=== PATIENT | female | born 1960 | race Caucasian/White ===

== ENCOUNTER 2017-05-15 11:31 | Inpatient (IN) | payer BC ==
--- NOTE | 2017-05-15 13:01 | ED PDOC ---
Arrival/HPI - General Chief Complaint: High Blood Pressure Time Seen by Provider: 05/15/17 12:46 Historian: Patient - History of Present Illness Narrative History of Present Illness (Text): 05/15/17 13:49 Patient is a 56 yo female presents to the Emergency Department with history of headaches intermittently and "not feeling well" for the past two days but also admits "possibly longer than that". Patient notes that she was noted to have elevated blood pressure, she denies prior history of this. Patient states headaches generalized, not sudden onset. No associated photopobia or neck pain. Also states that over past two days she has been short of breath with exertion, when she walks up steps she also experiences chest discomfort. At rest, denies chest pain. States headache currently persistent but somewhat improved than earlier. She reports that blood pressure was "180" prior to arrival. She reports that while getting triaged she "almost passed out", reports dizziness and lightheadedness while getting registered. Time/Duration: Prior to Arrival, < week Symptom Onset: Gradual Past Medical History - Neurological Hx Neurological Disorder: Yes Other/Comment: Fibromyalgia, chronic fatigue - Psychiatric Hx Substance Use: No - Surgical History Hx Hysterectomy: Yes Other/Comment: Rt. Knee, Rt. Shoulder Family/Social History Family/Social History: CAD/ME Smoking Status: Never Smoked Hx Alcohol Use: No Hx Substance Use: No Allergies/Home Meds Allergies/Adverse Reactions: Allergies No Known Allergies Allergy (Verified 05/15/17 20:53) Home Medications: Home Meds Medication Instructions Recorded Confirmed Unobtainable 05/15/17 05/15/17 Review of Systems - Review of Systems Constitutional: Fatigue. absent: Fevers Eyes: Other (intermittent blurred vision). absent: Vision Changes, Eye Pain ENT: absent: Hearing Changes, Sore Throat, Rhinorrhea Respiratory: absent: SOB Cardiovascular: Chest Pain, SILVA. absent: Edema, Calf Pain Gastrointestinal: absent: Abdominal Pain, Nausea, Vomiting Genitourinary Female: absent: Dysuria Musculoskeletal: Back Pain Skin: absent: Rash Neurological: Headache, Dizziness. absent: Focal Weakness Endocrine: absent: Polyuria Hemo/Lymphatic: absent: Easy Bleeding Psychiatric: absent: Depression Physical Exam - Physical Exam Narrative Physical Exam (Text): Head: Atraumatic. Normocephalic. Eyes: PERRL. EOMI. Conjunctivae are not pale. No pain with eye movements. Visual acuity and anderson grossly intact. ENT: Mucous membranes are moist and intact. Oropharynx is clear and symmetric. Neck: Supple. Full ROM. No JVD. No lymphadenopathy. Cardiovascular: Regular rate. Regular rhythm. No murmurs, rubs, or gallops. Distal pulses are 2+ and symmetric. Pulmonary/Chest: No evidence of respiratory distress. Clear to auscultation bilaterally. No wheezing, rales or rhonchi. Abdominal: Soft and non-distended. Mild epigastric pain, negative Rojas's sign. No rebound, guarding, or rigidity. No organomegaly. Good bowel sounds. Back: No CVA tenderness. Extremities: No edema. No cyanosis. No clubbing. Full range of motion in all extremities. No calf tenderness. Skin: Skin is warm and dry. No petechiae. No purpura. Neurological: Alert, awake, and oriented. Motor and sensory exam intact with no slurred speech or facial droop. Normal gait. No meningeal signs. Psychiatric: Good eye contact. Normal interaction, affect, and behavior. 05/16/17 11:13 Vital Signs Reviewed: Yes Vital Signs Temp Pulse Pulse Pulse Resp BP Pulse Ox 05/15/17 20:52 83 82 82 19 162/95 H 05/15/17 20:15 97.6 F 87 20 119/54 L 98 05/15/17 18:10 89 16 155/101 H 98 05/15/17 18:07 86 17 170/109 H 98 05/15/17 14:19 97.6 F 78 18 149/98 H 99 05/15/17 13:53 82 18 146/98 H 99 05/15/17 12:47 99 H 18 149/86 100 05/15/17 11:33 97.7 F 105 H 18 172/117 H 100 Temperature: Afebrile Blood Pressure: Hypertensive Appearance: Positive for: Uncomfortable Pain Distress: Moderate Mental Status: Positive for: Alert and Oriented X 3 Finger Stick Blood Glucose: 99 Medical Decision Making ED Course and Treatment: 05/15/17 16:35 Patient is a 56 yo female, DENIES prior history of hypertension, presents with "not feeling well", and patient has had chest pain and dyspnea with exertion. She has had prior cardiac cath which reportedly was unremarkable. She reports significant past family cardiac history. Patient is noted to be hypertensive in ED, reportedly found to be more elevated prior to arrival. She reports that her "blood pressure is usually low". Her current neuro exam is intact. She reports near syncopal event prior to being placed on stretcher. Currently no hypotension or tachycardia, no fever. She reports feeling dizzy when she lays down. No calf pain or pleuritic pain. There is mild epigastric pain noted on re- exam, LFTs mildly elevated when compared to prior. Cannot exclude GI component of symptoms, although given HTN and chest pain/dyspnea with exertion, possible multifactorial source of her symptoms, will admit for cardiac monitoring and serial neuro exams. Suspect headaches may be related to hypertension, as headache improved with BP improved, although given trending of persistently elevated BP by her report over past week will consider underlying neuro etiology as well if symptoms persistent. Case d/w hospitalist, covering for patient's PMD. - Lab Interpretations Lab Results: 05/15/17 13:23 05/15/17 13:23 Lab Results 05/15/17 13:23: Sodium 143, Potassium 4.1, Chloride 101, Carbon Dioxide 31, Anion Gap 15, BUN 13, Creatinine 0.7, Est GFR ( Amer) > 60, Est GFR (Non- Af Amer) > 60, Random Glucose 107, Calcium 10.1, Total Bilirubin 0.4, AST 60 H, ALT 71 H, Alkaline Phosphatase 104, Lactate Dehydrogenase 591, Total Creatine Kinase 263 H, CK-MB (CK-2) 0.8, CK-MB (CK-2) % Cancelled, Troponin I < 0.01, Total Protein 7.7, Albumin 4.6, Globulin 3.2, Albumin/Globulin Ratio 1.4 05/15/17 13:23: PT 11.4, INR 0.99, APTT 30.8 05/15/17 13:23: WBC 6.5, RBC 4.36, Hgb 14.3, Hct 43.1, MCV 98.9, MCH 32.8, MCHC 33.2, RDW 13.8, Plt Count 297, MPV 9.0, Gran % 61.0, Lymph % (Auto) 29.3, Luna % (Auto) 7.1 H, Eos % (Auto) 2.0, Baso % (Auto) 0.6, Gran # 3.94, Lymph # 1.9, Luna # 0.5, Eos # 0.1, Baso # 0.04 05/15/17 13:21: POC Glucose (mg/dL) 102 - RAD Interpretation Radiology Orders: 05/15/17 13:01 HEAD W/O CONTRAST [CT] Stat CHEST PORTABLE [RAD] Stat 05/15/17 14:54 ABDOMEN COMPLETE [US] Stat Candy Cutter Hand: Radiologist - EKG Interpretation EKG Interpretation (Text): 05/15/17 16:41 EKG normal sinus rhythm rate of 84, moderate voltage criteria for LVH Interpreted by ED Physician: Yes Type: 12 lead EKG - Medication Orders Current Medication Orders: Aspirin (Aspirin Chewable) 81 mg PO DAILY GABRIELLE Atorvastatin Calcium (Lipitor) 40 mg PO DIN [facility] Heparin Sodium (Porcine) (Heparin) 5,000 units SC Q12 GABRIELLE PRN Reason: Protocol Sodium Chloride (Sodium Chloride 0.9%) 1,000 mls @ 100 mls/hr IV .Q10H [facility] Loratadine (Claritin) 10 mg PO DAILY [facility] Last Admin: 05/15/17 18:12 Dose: 10 mg Magnesium Oxide (Mag-Ox) 400 mg PO BID [facility] Pantoprazole Sodium (Protonix Inj) 40 mg IVP Q12 [facility] Last Admin: 05/15/17 22:51 Dose: 40 mg IVP Administration Document 05/15/17 22:51 ST (Rec: 05/15/17 22:51 [place] [id number]) Charges for Administration # of IVP Administrations 1 Sodium Chloride ([place] Nasal Sultana) 2 ml NS BID PRN PRN Reason: Nasal congestion Discontinued Medications Acetaminophen/Butalbital/Caffeine (Fioricet) 1 tab PO ONCE STA Stop: 05/15/17 17:04 Last Admin: 05/15/17 18:12 Dose: 1 tab [facility] Pain Assessment Document 05/15/17 18:12 OCS (Rec: 05/15/17 18:12 OCS [id number]) Pain Reassessment Is this a pain reassessment? Yes Sleep Is patient sleeping during reassessment? No Presence of Pain Presence of Pain Yes Re-Assess: [facility] Pain Assessment Document 05/15/17 19:12 ST (Rec: 05/15/17 22:56 [place] [id number]) Pain Reassessment Is this a pain reassessment? Yes Sleep Is patient sleeping during reassessment? No Description Description Pressure Intensity of Pain at present 2 Acetaminophen/Butalbital/Caffeine (Fioricet) 1 tab PO Q6H PRN PRN Reason: Pain, moderate (4-7) Last Admin: 05/16/17 06:14 Dose: 1 tab [facility] Pain Assessment Document 05/16/17 06:14 ST (Rec: 05/16/17 06:15 ST [id number]) Pain Reassessment Is this a pain reassessment? No Sleep Is patient sleeping during reassessment? No Presence of Pain Presence of Pain Yes Pain Scale Used Pain Scale Used Numeric Location Left, Right or Bilateral Left Pain Location Body Project Management Advisor Description Description Constant Intensity of Pain at present 9 Re-Assess: [facility]NER Pain Assessment Document 05/16/17 07:14 ST (Rec: 05/16/17 08:23 ST [id number]) Pain Reassessment Is this a pain reassessment? Yes Sleep Is patient sleeping during reassessment? No Presence of Pain Presence of Pain Yes Pain Scale Used Pain Scale Used Numeric Location Pain Location Body Project Management Advisor Description Description Constant Intensity of Pain at present 8 Dexamethasone (Decadron Inj) 10 mg IVP ONCE ONE Stop: 05/16/17 08:07 Last Admin: 05/16/17 09:07 Dose: 10 mg IVP Administration Document 05/16/17 09:07 CD (Rec: 05/16/17 09:07 CD [id number]) Charges for Administration # of IVP Administrations 1 Diphenhydramine HCl (Benadryl) 25 mg PO ONCE STA Stop: 05/16/17 09:18 Last Admin: 05/16/17 09:21 Dose: 25 mg Famotidine (Pepcid) 20 mg IVP STAT STA Stop: 05/15/17 15:05 Last Admin: 05/15/17 18:12 Dose: 20 mg IVP Administration Document 05/15/17 18:12 OCS (Rec: 05/15/17 18:12 OCS [id number]) Charges for Administration # of IVP Administrations 1 Valproate Sodium 500 mg/ (Sodium Chloride) 105 mls @ 100 mls/hr IVPB ONCE ONE Stop: 05/16/17 08:43 Potassium Chloride (K-Dur 20 Meq Er Tab) 20 meq PO ONCE ONE Stop: 01/11/18 09:24 Disposition/Present on Arrival - Present on Arrival Any Indicators Present on Arrival: No History of DVT/PE: No History of Uncontrolled Diabetes: No Urinary Catheter: No History of Decub. Ulcer: No History Surgical Site Infection Following: None - Disposition Have Diagnosis and Disposition been Completed?: Yes Diagnosis: Hypertension, Dizziness, Headache, Chest pain, Near syncope Disposition: HOSPITALIZED Disposition Time: 14:00 Patient Plan: Admission, Telemetry Patient Problems: Current Active Problems Problem Status Onset Chest pain Acute Dizziness Acute Headache Acute Hypertension Acute Condition: FAIR
[2017-05-15 13:40] LABS: BASO # 0.04 K/mm3 (0.0-2.0); BASO % 0.6 % (0.0-3.0); EOS # 0.1 (0.0-0.7); GRAN # 3.94 (1.4-6.5); HEMOGLOBIN 14.3 g/dL (12.0-16.0); LYMPH # 1.9 (1.2-3.4); LYMPH % 29.3 % (22.0-35.0); MEAN CELL VOLUME 98.9 fl (80.0-105.0); MEAN CORPUSCULAR HEMOGLOBIN 32.8 pg (25.0-35.0); MEAN CORPUSCULAR HGB CONC 33.2 g/dl (31.0-37.0); MONO # 0.5 (0.1-0.6); MONO % 7.1 % (1.0-6.0); RBC 4.36 10^6/uL (3.5-6.1); RED CELL DISTRIBUTION WIDTH 13.8 % (11.5-14.5); WHITE BLOOD COUNT 6.5 10^3/ul (4.5-11.0)
[2017-05-15 13:43] LABS: ALB/GLOB RATIO 1.4 (1.1-1.8); ALBUMIN 4.6 g/dL (3.0-4.8); ALT/SGPT 71 U/L (7-56); AST/SGOT 60 U/L (14-36); BLOOD UREA NITROGEN 13 mg/dL (7-21); CALCIUM 10.1 mg/dL (8.4-10.5); GFR AFRICAN-AMERICAN > 60; GFR NON-AFRICAN AMERICAN > 60
[2017-05-15 13:50] LABS: INR 0.99 (0.93-1.08); PARTIAL THROMBOPLASTIN TIME 30.8 Seconds (25.1-36.5); PROTHROMBIN TIME 11.4 SECONDS (9.4-12.5)
[2017-05-15 13:55] LABS: TROPONIN I < 0.01 ng/mL
[2017-05-15 14:01] LABS: CK-MB 0.8 ng/mL (0.0-3.6)
--- NOTE | 2017-05-15 14:22 | CT ---
PROCEDURE: CT HEAD WITHOUT CONTRAST. HISTORY: Headache, hypertension COMPARISON: None available. TECHNIQUE: Axial computed tomography images were obtained through the head/brain without intravenous contrast. Coronal and sagittal reconstructed images. Radiation dose: Total exam DLP = 850.76 mGy-cm. This CT exam was performed using one or more of the following dose reduction techniques: Automated exposure control, adjustment of the mA and/or kV according to patient size, and/or use of iterative reconstruction technique. FINDINGS: HEMORRHAGE: No intracranial hemorrhage. BRAIN: No mass effect or edema. No atrophy or chronic microvascular ischemic changes. VENTRICLES: Unremarkable. No hydrocephalus. CALVARIUM: Unremarkable. PARANASAL SINUSES: Unremarkable as visualized. No significant inflammatory changes. MASTOID AIR CELLS: Unremarkable as visualized. No inflammatory changes. OTHER FINDINGS: None. IMPRESSION: No acute intracranial abnormalities. No significant findings to account for the clinical presentation.
--- NOTE | 2017-05-15 14:43 | RAD ---
HISTORY: Syncope COMPARISON: 12/16/2013. FINDINGS: LUNGS: No active pulmonary disease. PLEURA: No significant pleural effusion identified, no pneumothorax apparent. CARDIOVASCULAR: No radiographic findings to suggest acute or significant cardiovascular disease. OSSEOUS STRUCTURES: No significant abnormalities. VISUALIZED UPPER ABDOMEN: Normal. OTHER FINDINGS: None. IMPRESSION: No active disease. No significant interval change compared to the prior examination(s).
--- NOTE | 2017-05-15 15:55 | CP.PCM.HP ---
<Yang Hughes - Last Filed: 05/16/17 05:11> History of Present Illness - History of Present Illness History of Present Illness: Chief Complaint: Headaches, generalized weakness HPI: Patient is a 56 year old female with past medical history of chronic migraines, hypotension presenting to [facility] emergency department with complaints of generalized weakness, headaches, shortness of breath, headaches, and epigastric pain. Patient states that the headache started about a month ago and that they are significantly different from the migraine she experiences. Patient states when she has migraines they are associated with diarrhea vomiting, photophobia and sweating.Patient states these headaches are different because they start from the left side of her neck and wrap her forehead with a focal point especially above the left eyebrow patient states headaches are also associated with her blurry vision and are not associated with nausea, diarrhea and photophobia. Pain is rated a seven out of ten, exacerbated with laying down and relieved by sitting up.Patient also endorses one month of shortness of breath with minimal exertion such as walking up the stairs to her house; this has never happened in the past. Patient's blood pressure is the main reason she came to the emergency department. Patient states her blood pressure has been noticeably increased stating that in the past week her readings for systolic blood pressure has been in the 160 to 180s; this is significant per patient due to the fact that she normally suffers from hypotension. While being admitted to the ED patient experienced a syncopal episode. Patient did not experience any trauma to this head at this time; code star was called. Patient denies fevers, chills, cough. PMD: formerly Dr. Almazan Past surgical history: Cholecystectomy, hysterectomy s/p Stage IV endometriosis , Fusion L4-L5 , endoscopy by Dr. Milian Family History: Mother- Breast cancer, Father- Myocardial infarction Past Medical history: chronic fatigue syndrome, chronic migraines, hypotension Social History: denies smoking, admits to social alcohol consumption, denies illicit drug use Medications: For migraines: Relpax 40 mg as needed, Allergies: esloratidine 5 mg daily, CFS/ME: valacyclovir 2 mg daily, memantine 5 mg daily, nalyrexone 1 mg daily, modafenil 100 mg daily, glutathione 50 mg weekly, Pain and fibromyalgia: cyclobenzaprine 5 mg nightly, celecoxib 200 mg twice a day, Vitamins and supplements: essential blend probiotic, magnesium, multivitamin, vitamin D3, Co-Q, phosphatidyl serine, inosine, tumeric curcumin, melatonin Labs on admission: wbc 6.5, hemoglobin 14.3, hematocrit 43.1, platelets 297, sodium 143, potassium 4.1, chloride 101, bicarbonate 31, BUN 13, creatinine 0.7 , AST 60, ALT 71, creatine kinase 263, troponins negative x2 Chest x-ray: no active disease CT head: no intracranial hemorrhage MRI brain without contrast: scattered foci of high FLAIR signal intensity within the cerebral matter. No mass effect or reestricted diffusion associated with these foci; suggestive of chronic small vessel ischemic disease, demyelination within differential. Small atrophy of frontal sulci. Calcification of posterior right frontal lobe; hemosiderin within differential, mild ventriculomegaly, no cerebral edema Abdominal ultrasound: fatty infiltration of liver, hepatic cysts; largest in right lobe 2.3 x 3.1. Present on Admission - Present on Admission Any Indicators Present on Admission: No Review of Systems - Review of Systems Systems not reviewed;Unavailable: Acuity of Condition - Constitutional Constitutional: Headache - EENT Eyes: Blurred Vision. absent: Tunnel Vision - Cardiovascular Cardiovascular: Dyspnea on Exertion, Syncope - Respiratory Respiratory: Dyspnea. absent: Wheezing - Gastrointestinal Gastrointestinal: Abdominal Pain. absent: Diarrhea - Genitourinary Genitourinary: absent: Dysuria, Flank Pain - Musculoskeletal Musculoskeletal: Back Pain - Neurological Neurological: Dizziness, Syncope, Weakness - Endocrine Endocrine: Fatigue Past Patient History - Past Social History Smoking Status: Never Smoked - NEUROLOGICAL Hx Neurological Disorder: Yes Other/Comment: Fibromyalgia, chronic fatigue - PSYCHIATRIC Hx Substance Use: No - SURGICAL HISTORY Hx Hysterectomy: Yes Other/Comment: Rt. Knee, Rt. Shoulder Meds Allergies/Adverse Reactions: Allergies Allergy/AdvReac Type Severity Reaction Status Date / Time No Known Allergies Allergy Verified 05/15/17 20:53 Physical Exam - Head Exam Head Exam: ATRAUMATIC, NORMAL INSPECTION, NORMOCEPHALIC - Eye Exam Eye Exam: EOMI, Normal appearance - ENT Exam ENT Exam: Mucous Membranes Moist, Normal Exam - Neck Exam Neck exam: Positive for: Normal Inspection - Respiratory Exam Respiratory Exam: Clear to Auscultation Bilateral, NORMAL BREATHING PATTERN - Cardiovascular Exam Cardiovascular Exam: REGULAR RHYTHM, +S1, +S2 - GI/Abdominal Exam GI & Abdominal Exam: Normal Bowel Sounds, Soft, Tenderness (right upper quadrant and right lower quadrant) - Extremities Exam Extremities exam: Positive for: normal inspection, pedal edema (bilateral) - Back Exam Back exam: NORMAL INSPECTION - Neurological Exam Neurological exam: Alert, CN II-XII Intact, Oriented x3 - Psychiatric Exam Psychiatric exam: Normal Affect, Normal Mood - Skin Skin Exam: Intact, Normal Color, Warm Results - Vital Signs Recent Vital Signs: Last Vital Signs Temp 97.6 F 05/15/17 14:19 Pulse 78 05/15/17 14:19 Resp 18 05/15/17 14:19 BP 149/98 H 05/15/17 14:19 Pulse Ox 99 05/15/17 14:19 - Labs Result Diagrams: 05/15/17 13:23 05/15/17 13:23 Labs: Laboratory Results - last 24 hr 05/15/17 05/15/17 05/15/17 13:23 13:23 13:23 WBC 6.5 RBC 4.36 Hgb 14.3 Hct 43.1 MCV 98.9 MCH 32.8 MCHC 33.2 RDW 13.8 Plt Count 297 MPV 9.0 Gran % 61.0 Lymph % (Auto) 29.3 Alpine % (Auto) 7.1 H Eos % (Auto) 2.0 Baso % (Auto) 0.6 Gran # 3.94 Lymph # 1.9 Alpine # 0.5 Eos # 0.1 Baso # 0.04 PT 11.4 INR 0.99 APTT 30.8 Sodium 143 Potassium 4.1 Chloride 101 Carbon Dioxide 31 Anion Gap 15 BUN 13 Creatinine 0.7 Est GFR ( Amer) > 60 Est GFR (Non-Af Amer) > 60 Random Glucose 107 Calcium 10.1 Total Bilirubin 0.4 AST 60 H ALT 71 H Alkaline Phosphatase 104 Lactate Dehydrogenase 591 Total Creatine Kinase 263 H CK-MB (CK-2) 0.8 CK-MB (CK-2) % Cancelled Troponin I < 0.01 Total Protein 7.7 Albumin 4.6 Globulin 3.2 Albumin/Globulin Ratio 1.4 Assessment & Plan - Assessment and Plan (Free Text) Assessment: Patient is a 56 year old female with past medical history of chronic migraines, hypotension presenting to [facility] emergency department with complaints of generalized weakness, headaches, shortness of breath, headaches, and epigastric pain. Plan: Syncope r/o ACS versus migraine versus vasovagal versus orthostasis - Troponin negative x 2 - EKG; normal sinus rhythm - carotid doppler - echocardiogram - orthostatics - CBC, CMP, TSH, fasting lipid panel, HgA1C - Cardiology consult; recommendations appreciated - Neurology consult; recommendations appreciated - neuro checks Migraines - Fiorocet; continue to monitor - Regular diet; patient hasn't eaten. Mild stressed with seemster starting again Hypertension - Continue to monitor; normalized after fiorocet was administered and eating Deep vein thrombosis/Gastrointestinal prophylaxis SCDs and heparin drip/Protonix <Qamar Aldana - Last Filed: 05/17/17 15:47> Results - Vital Signs Recent Vital Signs: Last Vital Signs Temp 98.8 F 05/16/17 19:06 Pulse 105 H 05/16/17 19:06 Resp 20 05/16/17 19:06 BP 159/101 H 05/16/17 19:06 Pulse Ox 98 05/16/17 06:00 - Labs Result Diagrams: 05/17/17 06:30 05/17/17 06:30 Labs: Laboratory Results - last 24 hr 05/17/17 05/17/17 06:30 06:30 WBC 12.1 H D RBC 4.04 Hgb 13.1 Hct 39.3 MCV 97.3 MCH 32.4 MCHC 33.3 RDW 14.0 Plt Count 312 MPV 9.0 Gran % 78.7 H Lymph % (Auto) 15.6 L Alpine % (Auto) 5.6 Eos % (Auto) 0.0 L Baso % (Auto) 0.1 Gran # 9.48 H Lymph # 1.9 Alpine # 0.7 H Eos # 0.0 Baso # 0.01 Sodium 140 Potassium 3.9 Chloride 107 Carbon Dioxide 22 Anion Gap 15 BUN 13 Creatinine 0.6 L Est GFR ( Amer) > 60 Est GFR (Non-Af Amer) > 60 Random Glucose 140 H Calcium 9.4 Total Bilirubin 0.3 AST 39 H D ALT 55 Alkaline Phosphatase 101 Total Protein 7.0 Albumin 4.0 Globulin 3.0 Albumin/Globulin Ratio 1.3 Attending/Attestation - Attestation I have personally seen and examined this patient.: Yes I have fully participated in the care of the patient.: Yes I have reviewed all pertinent clinical information: Yes Notes (Text): 05/17/17 15:22 Attending note; Patient seen and examined with resident in ER. Patient is a 56 year old female with past medical history of chronic fatigue syndrome , history of epidural injections , occipital nerve block, chronic migraines who presented with complaint of headache, high blood pressure and pre syncopal episode. CT and MRI brain with significant ischemia. Echocardiogram normal. Carotid Doppler normal. Neurology and cardiology evaluation appreciated. Hypertension; not on blood pressure medication at home. Monitor blood pressure closely. Start medication as needed. continue flexaril and topamax. Mild transaminitis noted; abdominal ultrasound showed fatty liver. PT evaluation requested. Possible discharge home tomorrow if PT clears the patient. 05/17/17 15:46
--- NOTE | 2017-05-15 16:52 | US ---
HISTORY: upper abdominal pain COMPARISON: None. TECHNIQUE: Sonographic evaluation of the abdomen. FINDINGS: LIVER: Measures 15.9 cm. Hepatopedal blood flow. Fatty infiltration manifest ultrasonographically as increased echogenicity of the liver parenchyma. No mass. No intrahepatic bile duct dilatation.Incidental finding(s): Hepatic cysts (2) the largest in the right hepatic lobe 2.3 x 3.1 cm GALLBLADDER: Unremarkable. No gallstones. COMMON BILE DUCT: Measures 4.5 mm. No stones. No dilatation. PANCREAS: Unremarkable as visualized. No mass. No ductal dilatation. RIGHT KIDNEY: Measures cm. Normal echogenicity. No calculus, mass, or hydronephrosis. LEFT KIDNEY: Measures cm. Normal echogenicity. No calculus, mass, or hydronephrosis. SPLEEN: Normal in size and contour. No mass. AORTA: No aneurysmal dilatation. IVC: Unremarkable. OTHER FINDINGS: None. IMPRESSION: No acute findings related to/accounting for the clinical presentation. Additional benign and/or incidental findings described above.
[2017-05-15] MEDS ORDERED: Apap-Butalbital-Caffeine 325-50-40mg Tab PO STA (17:03)
[2017-05-15 18:59] LABS: URINE BILIRUBIN NEGATIVE (NEGATIVE); URINE BLOOD TRACE-INTACT (NEGATIVE); URINE GLUCOSE (UA) NEGATIVE (NEGATIVE); URINE LEUKOCYTE ESTERASE NEGATIVE Leu/uL (NEGATIVE); URINE NITRATE NEGATIVE (NEGATIVE); URINE PROTEIN NEGATIVE mg/dL (<30 mg/dL); URINE UROBILINOGEN 0.2 E.U./dL (<1 E.U./dL)
[2017-05-15 19:00] LABS: URINE APPEARANCE CLOUDY (CLEAR); URINE COLOR YELLOW (YELLOW)
[2017-05-15 19:05] LABS: URINE WBC 0 - 2 /hpf (0-6)
[2017-05-15 19:06] LABS: URINE BACTERIA MOD (NEG)
--- NOTE | 2017-05-15 20:33 | MRI ---
EXAM: MR Head Without Intravenous Contrast EXAM DATE/TIME: 05/15/2017 6:21 PM CLINICAL HISTORY: The patient age is 56 years old and is female; Signs and symptoms; Dizziness and other: CHRISTOPHER; Additional info: Headache with blurry vision Facility exam id and description: Mri br s brain without contrast TECHNIQUE: Magnetic resonance images of the head/brain without intravenous contrast in multiple planes. COMPARISON: CT - HEAD W/O CONTRAST 2017-05-15 14:02 FINDINGS: Brain: There is no restricted diffusion within the brain to suggest acute ischemic change. There are scattered foci of high FLAIR signal intensity within the cerebral white matter. There is no mass effect or restricted diffusion associated with these foci. This is suggestive of chronic small vessel ischemic disease. Demyelination is within the differential. There is mild atrophy of the frontal sulci. There is a small focus of magnetic susceptibility involving the posterior right frontal lobe, likely representing calcification when correlated with the previous CT. Hemosiderin is within the differential, but considered less likely. No cerebral edema. Ventricles: There is mild ventriculomegaly. Bones/joints: There is slight anterolisthesis of C3 on C4. Sinuses: Unremarkable as visualized. No acute sinusitis. Mastoid air cells: No mastoid effusion. Orbits: No acute abnormality, as visualized. IMPRESSION: 1. There is no restricted diffusion within the brain to suggest acute ischemic change. 2. There are scattered foci of high FLAIR signal intensity within the cerebral white matter. This is suggestive of chronic small vessel ischemic disease. Demyelination is within the differential. 3. There is mild atrophy of the frontal sulci. 4. There is mild ventriculomegaly. 5. Additional findings described above.
[2017-05-15 22:17] LABS: TROPONIN I < 0.01 ng/mL
[2017-05-15] MEDS: Apap-Butalbital-Caffeine 325-50-40mg Tab PO PRN (23:00)
[2017-05-16] MEDS ORDERED: Influenza Vaccine 60 mcg/0.5 mL SYR (4YR UP) IM ONE (06:11)
[2017-05-16] MEDS: Apap-Butalbital-Caffeine 325-50-40mg Tab PO PRN (06:14)
[2017-05-16 07:10] LABS: BASO # 0.06 K/mm3 (0.0-2.0); BASO % 0.9 % (0.0-3.0); EOS # 0.2 (0.0-0.7); EOS % 3.1 % (1.5-5.0); GRAN # 2.64 (1.4-6.5); GRAN % 40.9 % (50.0-68.0); HEMOGLOBIN 13.4 g/dL (12.0-16.0); LYMPH % 46.6 % (22.0-35.0); MEAN CELL VOLUME 98.8 fl (80.0-105.0); MEAN CORPUSCULAR HEMOGLOBIN 32.4 pg (25.0-35.0); MEAN CORPUSCULAR HGB CONC 32.8 g/dl (31.0-37.0); MONO # 0.6 (0.1-0.6); MONO % 8.5 % (1.0-6.0); RBC 4.14 10^6/uL (3.5-6.1); RED CELL DISTRIBUTION WIDTH 14.1 % (11.5-14.5); WHITE BLOOD COUNT 6.5 10^3/ul (4.5-11.0)
[2017-05-16 07:16] LABS: ALB/GLOB RATIO 1.4 (1.1-1.8); ALBUMIN 4.1 g/dL (3.0-4.8); ALT/SGPT 64 U/L (7-56); AST/SGOT 49 U/L (14-36); BLOOD UREA NITROGEN 14 mg/dL (7-21); CALCIUM 9.3 mg/dL (8.4-10.5); GFR AFRICAN-AMERICAN > 60; GFR NON-AFRICAN AMERICAN > 60; HDL CHOLESTEROL 55 mg/dL (29-60)
[2017-05-16 07:31] LABS: LDL CHOLESTEROL 119 mg/dL (0-129)
[2017-05-16 07:35] LABS: TROPONIN I < 0.01 ng/mL
[2017-05-16] MEDS ORDERED: Valproate 500 MG in Sodium Chloride 0.9% 100 ML IVPB ONE (07:41)
[2017-05-16] MEDS ORDERED: Potassium Chloride 20 mEq ER Tab PO ONE (09:23)
[2017-05-16] MEDS ORDERED: Sodium Chloride 0.9% 1,000 ML IV SCH (09:30)
--- NOTE | 2017-05-16 09:43 | CT ---
PROCEDURE: CT Chest without contrast HISTORY: hemoptysis COMPARISON: None. TECHNIQUE: Contiguous axial images were obtained through the chest without intravenous contrast enhancement. Sagittal and coronal reconstructions were performed. Radiation dose (DLP): 721 mGy-cm. This CT exam was performed using one or more of the following dose reduction techniques: Automated exposure control, adjustment of the mA and/or kV according to patient size, and/or use of iterative reconstruction technique. FINDINGS: LUNGS: There is a 4 x 8 mm density in the right upper lobe. This does not have the typical appearance of a nodule and most likely represents an area of parenchymal scarring. This is seen on image 54 series 3 MEDIASTINUM: Unremarkable thoracic aorta. No aneurysm. Normal sized heart. Main pulmonary artery unremarkable. No vascular congestion. No lymphadenopathy. PLEURA: No pleural fluid. No pneumothorax. BONES: No fracture. No destructive lesion. UPPER ABDOMEN: Grossly unremarkable. OTHER FINDINGS: None. IMPRESSION: Small focal density in the right upper lobe measuring 4 x 8 mm most likely representing scar. There is no evidence of a lung mass or pneumonia
[2017-05-16] MEDS ORDERED: Magnesium Oxide 400 mg Tab UD PO SCH (10:00)
--- NOTE | 2017-05-16 12:47 | CP.PCM.PN ---
<Yang Hughes - Last Filed: 05/16/17 13:17> Subjective - Date & Time of Evaluation Date of Evaluation: 05/16/17 Time of Evaluation: 06:30 - Subjective Subjective: Patient seen and examined at bedside in no acute distress. States her headaches have returned. Admits to fiorocet and meal improving headache but stating it only relieved her headache for an hour. Patient states blurry vision still continues despite using her glasses. Admits to dizziness when standing up and walking. Has difficulty ambulating on her own. Denies abdominal pain, fevers, chills, nausea, vomiting, diarrhea, photophobia. Objective - Vital Signs/Intake and Output Vital Signs (last 24 hours): Temp Pulse Resp BP Pulse Ox 97.4 F L 86 20 156/95 H 98 05/16/17 12:00 05/16/17 12:00 05/16/17 12:00 05/16/17 12:00 05/16/17 06:00 Intake and Output: 05/16/17 05/16/17 06:59 18:59 Intake Total 300 240 Balance 300 240 - Medications Medications: Current Medications Aspirin (Aspirin Chewable) 81 mg PO DAILY [facility] Last Admin: 05/16/17 12:06 Dose: 81 mg Atorvastatin Calcium (Lipitor) 40 mg PO DIN [facility] Heparin Sodium (Porcine) (Heparin) 5,000 units SC Q12 [facility] PRN Reason: Protocol Last Admin: 05/16/17 12:05 Dose: 5,000 units Sodium Chloride (Sodium Chloride 0.9%) 1,000 mls @ 100 mls/hr IV .Q10H [facility] Last Admin: 05/16/17 12:38 Dose: 100 mls/hr Loratadine (Claritin) 10 mg PO DAILY [facility] Last Admin: 05/16/17 12:06 Dose: 10 mg Magnesium Oxide (Mag-Ox) 400 mg PO BID [facility] Last Admin: 05/16/17 12:06 Dose: 400 mg Pantoprazole Sodium (Protonix Inj) 40 mg IVP Q12 [facility] Last Admin: 05/16/17 12:05 Dose: 40 mg Sodium Chloride ([place] Nasal [employer]) 2 ml NS BID PRN PRN Reason: Nasal congestion - Labs Labs: 05/16/17 06:30 05/16/17 06:30 PT 11.4 SECONDS (9.4-12.5) 05/15/17 13:23 INR 0.99 (0.93-1.08) 05/15/17 13:23 APTT 30.8 Seconds (25.1-36.5) 05/15/17 13:23 - Constitutional Appears: Non-toxic, No Acute Distress - Head Exam Head Exam: ATRAUMATIC, NORMAL INSPECTION, NORMOCEPHALIC - Eye Exam Eye Exam: EOMI, Normal appearance - ENT Exam ENT Exam: Mucous Membranes Moist, Normal Exam - Neck Exam Neck Exam: Normal Inspection - Respiratory Exam Respiratory Exam: Clear to Ausculation Bilateral, NORMAL BREATHING PATTERN - Cardiovascular Exam Cardiovascular Exam: REGULAR RHYTHM, +S1, +S2 - GI/Abdominal Exam GI & Abdominal Exam: Soft, Normal Bowel Sounds - Extremities Exam Extremities Exam: Pedal Edema - Neurological Exam Neurological Exam: Alert, Awake, Oriented x3 - Psychiatric Exam Psychiatric exam: Normal Affect, Normal Mood - Skin Skin Exam: Intact, Normal Color, Warm Assessment and Plan - Assessment and Plan (Free Text) Assessment: Patient is a 56 year old female with past medical history of chronic migraines, hypotension presenting to [facility] emergency department with complaints of generalized weakness, headaches, shortness of breath, headaches, and epigastric pain. Plan: Syncope r/o ACS versus migraine versus vasovagal versus orthostasis - Troponin negative x 3 - EKG; normal sinus rhythm - carotid doppler; results pending - echocardiogram; results pending - orthostatics; positive. Started on intravenous fluids. - CBC, CMP, TSH, fasting lipid panel, HgA1C: liver enzymes are downtrending, TSH normal, lipid panel significant for trigylcerides 185, HgA1C - Cardiology consult; recommendations appreciated - Neurology consult; MRA head and neck ordered; results pending.Atorvastatin and Lipitor started as well considering findings of chronic small ischemic vessel changes on MRI brain. - continue with neuro checks Migraines - Patient given dexamethasone, valproic acid, and magnesium oxide. Discussed case with headache specialist Dr. Hawkins. Dr. Hawkins would like patient to be placed on imitrex, flexaril, and topomax. Will see how patient tolerates this medication regimen. - Regular diet Hypertension - Continue to monitor according to headache treatment. If hypertension persists will consider anti-hypertensives Physcial Therapy Evaluation - Complains of issues ambulating; awaiting physical therapy assessment. Deep vein thrombosis/Gastrointestinal prophylaxis SCDs and heparin drip/Protonix <Aleena Garcia - Last Filed: 05/16/17 16:18> Objective - Vital Signs/Intake and Output Vital Signs (last 24 hours): Temp Pulse Resp BP Pulse Ox 97.4 F L 101 H 20 156/95 H 98 05/16/17 12:00 05/16/17 14:00 05/16/17 12:00 05/16/17 12:00 05/16/17 06:00 Intake and Output: 05/16/17 05/16/17 06:59 18:59 Intake Total 300 240 Balance 300 240 - Medications Medications: Current Medications Aspirin (Aspirin Chewable) 81 mg PO DAILY [facility] Last Admin: 05/16/17 12:06 Dose: 81 mg Atorvastatin Calcium (Lipitor) 40 mg PO DIN [facility] Cyclobenzaprine HCl (Flexeril) 5 mg PO TID [facility] Last Admin: 05/16/17 15:06 Dose: 5 mg Heparin Sodium (Porcine) (Heparin) 5,000 units SC Q12 [facility] PRN Reason: Protocol Last Admin: 05/16/17 12:05 Dose: 5,000 units Sodium Chloride (Sodium Chloride 0.9%) 1,000 mls @ 100 mls/hr IV .Q10H [facility] Last Admin: 05/16/17 12:38 Dose: 100 mls/hr Loratadine (Claritin) 10 mg PO DAILY [facility] Last Admin: 05/16/17 12:06 Dose: 10 mg Losartan Potassium (Cozaar) 100 mg PO DAILY [facility] Magnesium Oxide (Mag-Ox) 400 mg PO BID [facility] Pantoprazole Sodium (Protonix Ec Tab) 40 mg PO Q12 [facility] Sodium Chloride ([place]ahn[place] Nasal [employer] [place]) 2 ml NS BID PRN PRN Reason: Nasal congestion Topiramate (Topamax) 50 mg PO BID [facility] PRN Reason: Protocol Last Admin: 05/16/17 15:06 Dose: 50 mg - Labs Labs: 05/16/17 06:30 05/16/17 06:30 PT 11.4 SECONDS (9.4-12.5) 05/15/17 13:23 INR 0.99 (0.93-1.08) 05/15/17 13:23 APTT 30.8 Seconds (25.1-36.5) 05/15/17 13:23 Attending/Attestation - Attestation I have personally seen and examined this patient.: Yes I have fully participated in the care of the patient.: Yes I have reviewed all pertinent clinical information, including history, physical exam and plan: Yes Notes (Text): 05/16/17 16:13 56 year old female with past medical history of chronic migraines who presented with complaint of headache, high blood pressure and syncopal episode. CT and MRI brain were reviewed. Echocardiogram, carotid dopplers and EEG are pending. Neurology and cardiology evaluations were also requested. She is on aspirin and statin. She was started on cozaar as well. Also started on imitrex, flexaril and topamax. Will check for response. Mild transaminitis noted; monitor LFTs closely while on statin. PT evaluation was also requested. Aleena Garcia MD Hospitalist.
--- NOTE | 2017-05-16 16:56 | CARD ---
APPROVED REPORT EXAM: Two-dimensional and M-mode echocardiogram with Doppler and color Doppler. INDICATION Syncope 2D DIMENSIONS Left Atrium (2D)3.8 (1.6-4.0cm)IVSd1.2 (0.7-1.1cm) Aortic Root (2D)3.1 (2.0-3.7cm)LVDd3.8 (3.9-5.9cm) PWd1.1 (0.7-1.1cm)LVDs2.1 (2.5-4.0cm) FS (%) 45.9 %LVEF (%)78.0 (>50%) M-Mode DIMENSIONS Aortic Cusp Exc.1.40 (1.5-2.0cm) Aortic Valve AoV Peak Ziqjatdd999.0cm/Bill Peak GR.9mmHg Mitral Valve MV E Nqmujtzu00.2cm/sMV A Jsovjhdz857.0cm/sE/A ratio0.6 TDI Lateral E' Peak V8.58cm/sMedial E' Peak V4.78cm/sE/Lateral E'7.6 E/Medial E'13.6 Pulmonary Valve PV Peak Gxrvhafq256.0cm/sPV Peak Grad.6mmHg Tricuspid Valve TR Peak Rjkaoorj683bz/sRAP PYGZLVUE0znMcVU Peak Gr.16mmHg [id number] LEFT VENTRICLE The left ventricle is normal size. There is borderline concentric left ventricular hypertrophy. The left ventricular function is normal. The left ventricular ejection fraction is within the normal range. There is normal LV segmental wall motion. Transmitral Doppler flow pattern is Grade I-abnormal relaxation pattern. RIGHT VENTRICLE The right ventricle is normal size. There is normal right ventricular wall thickness. The right ventricular systolic function is normal. ATRIA The left atrium size is normal. The right atrium size is normal. AORTIC VALVE The aortic valve is normal in structure. No aortic regurgitation is present. There is no aortic valvular stenosis. MITRAL VALVE The mitral valve is normal in structure. There is no mitral valve regurgitation noted. There is no mitral valve stenosis. TRICUSPID VALVE The tricuspid valve is normal in structure. There is no tricuspid valve regurgitation noted. GREAT VESSELS The aortic root is normal in size. The IVC was not visualized. PERICARDIAL EFFUSION There is no pericardial effusion. <Conclusion> The left ventricle is normal size. There is borderline concentric left ventricular hypertrophy. The left ventricular function is normal. The left ventricular ejection fraction is within the normal range. There is normal LV segmental wall motion. Transmitral Doppler flow pattern is Grade I-abnormal relaxation pattern.
--- NOTE | 2017-05-16 18:05 | CARD ---
APPROVED REPORT EKG Measurement Heart [id number] <Conclusion> Poor data quality, interpretation may be adversely affected Normal sinus rhythm Voltage criteria for left ventricular hypertrophy Abnormal ECG
--- NOTE | 2017-05-16 19:31 | MRI ---
EXAM: MR Angiography Neck Without Intravenous Contrast EXAM DATE/TIME: 05/16/2017 7:28 AM CLINICAL HISTORY: The patient age is 56 years old and is female; Signs and symptoms; Headache and vertigo; Additional info: Follow up mri Facility exam id and description: Mri mra necks mra neck without contrast TECHNIQUE: Magnetic resonance angiography images of the neck without intravenous contrast. COMPARISON: No relevant prior studies available. FINDINGS: Right common carotid artery: There is no significant stenosis or occlusion of the bilateral distal common carotid arteries. Evaluation of the remaining common carotid arteries is otherwise technically suboptimal. Right internal carotid artery: Evaluation of right internal carotid artery is technically suboptimal. No occlusion. Right external carotid artery: No occlusion. Evaluation technically limited. Right vertebral artery: Artifact limits evaluation of the bilateral vertebral arteries both proximally and distally. There is no significant stenosis or occlusion of the mid vertebral arteries bilaterally. Left common carotid artery: See above. Left internal carotid artery: There is increased tortuosity of the left internal carotid artery, without hemodynamically significant stenosis or occlusion. Artifact limits evaluation of the proximal left internal carotid artery. Left external carotid artery: No occlusion. Evaluation technically limited. Left vertebral artery: See above. CAROTID STENOSIS REFERENCE USING NASCET CRITERIA: % ICA stenosis = (1 - narrowest ICA diameter/diameter of distal cervical ICA) x 100. Mild - <50% stenosis. Moderate - 50-69% stenosis. Severe - 70-94% stenosis. Near occlusion - 95-99% stenosis. Occluded - 100% stenosis. IMPRESSION: 1. There is increased tortuosity of the left internal carotid artery, without hemodynamically significant stenosis or occlusion. 2. Evaluation of right internal carotid artery and bilateral common carotid arteries are technically suboptimal. Correlation with CTA or postcontrast MRA is recommended. 3. Artifact also limits evaluation of the bilateral vertebral arteries.
--- NOTE | 2017-05-16 19:41 | MRI ---
EXAM: MR Angiography Head Without Intravenous Contrast EXAM DATE/TIME: 05/16/2017 7:27 AM CLINICAL HISTORY: The patient age is 56 years old and is female; Signs and symptoms; Dizziness and giddiness and headache; Additional info: Follow up mri, headache Facility exam id and description: Mri mra heads mra head without contrast TECHNIQUE: Magnetic resonance angiography images of the head without intravenous contrast. COMPARISON: MR - BRAIN WITHOUT CONTRAST 2017-05-15 19:30 FINDINGS: Right internal carotid artery: No acute findings. Intracranial segment is patent with no significant stenosis. No aneurysm. Right anterior cerebral artery: The A2 segments of the bilateral anterior cerebral arteries appear to be duplicated, which is likely due to motion artifact. Although a linear band of hypointensity is visualized on the raw data in the region of these vessels, dissection is considered less likely. No aneurysm. Right middle cerebral artery: No occlusion or significant stenosis. No aneurysm. Right posterior cerebral artery: No occlusion or significant stenosis. No aneurysm. Right vertebral artery: Not included in the [id number] of the study. Left internal carotid artery: No acute findings. Intracranial segment is patent with no significant stenosis. No aneurysm. Left anterior cerebral artery: See above. Left middle cerebral artery: No occlusion or significant stenosis. No aneurysm. Left posterior cerebral artery: There is persistence of the origin of the left posterior cerebral artery. There is mild decrease in caliber of this vessel proximally, which is either developmental or due to mild stenosis. No aneurysm. Left vertebral artery: Suboptimal evaluation. Basilar artery: There is increased tortuosity of the basilar artery. No occlusion or significant stenosis. No aneurysm. IMPRESSION: 1. There is persistence of the origin of the left posterior cerebral artery. There is mild decrease in caliber of this vessel proximally, which is either developmental or due to mild stenosis. 2. The A2 segments of the bilateral anterior cerebral arteries appear to be duplicated, which is likely due to motion artifact. Although a linear band of hypointensity is visualized on the raw data in the region of these vessels, dissection is considered less likely. This can be further evaluated with CTA. 3. Additional findings described above.
--- NOTE | 2017-05-16 22:17 | CON ---
DATE: 05/16/2017 HISTORY: The patient is a 56-year-old woman who presented with headaches and general malaise. She states that she has no history of hypertension in the past, but has noted elevated blood pressures at home. She states that there was an episode in which she had a near syncopal episode with dizziness without loss of consciousness. Her medications are unclear at home. However, she was diagnosed in [place] with chronic fatigue syndrome. She denies chest pain. She does complain of intermittent shortness of breath. Her cardiac workup included a stress test performed in 2016 which revealed an EF of 62% with no ischemic changes. SOCIAL HISTORY: The patient does not smoke. REVIEW OF SYSTEMS: A 14-point review of systems was reviewed. Chronic general malaise, dyspnea without edema was noted. No angina noted. PHYSICAL EXAMINATION: VITAL SIGNS: Blood pressure 156/95, heart rate is in the 80s. NECK: Negative JVD. LUNGS: Without rales. HEART: S1, S2. EXTREMITIES: Without edema. EKG shows normal sinus rhythm with no acute changes. LABORATORY DATA: Reveals troponins are negative x3. BUN and creatinine are within normal limits. Her TSH is 3.44. The hemoglobin is 13.8. Preliminary echocardiogram reveals good LV function with no LV outflow obstruction. CT scan of the chest revealed no evidence of pneumonia or lung mass. IMPRESSION: 1. Fatigue. 2. Chronic dizziness without loss of consciousness. 3. Hypertension. 4. Obesity. 5. Chronic fatigue syndrome. Given these findings, there is no evidence for cardiac cause of her symptoms. Her carotid ultrasound as well as her abdominal ultrasound is still pending. We will discontinue telemetry today. I have discussed with the patient about including an exercise program in her life after she is discharged. I will begin Diovan to help better control of her blood pressure. We will discontinue telemetry today. Carmine Crum MD
[2017-05-16] MEDS: Pantoprazole 40 mg EC Tab PO SCH (22:32)
--- NOTE | 2017-05-17 00:10 | US ---
PROCEDURE: Bilateral carotid artery duplex ultrasound HISTORY: Carotid stenosis PHYSICIAN(S): Carmine Dee MD. TECHNIQUE: Duplex sonography and color-flow Doppler were used to evaluate the carotid bifurcations and limited segments of the vertebral arteries bilaterally. The exam is limited by tortuous vessels FINDINGS: There is mild smooth hypoechoic plaque noted at the carotid bifurcations bilaterally. The peak systolic velocity in the proximal right internal carotid artery is 73 cm/sec. This corresponds to a 20 to 39% proximal right ICA stenosis. Normal systolic velocities are noted in the proximal right external carotid artery. There is antegrade flow in the right vertebral artery. The peak systolic velocity in the proximal left internal carotid artery is 88 cm/sec. This corresponds to a 20 to 39% proximal left ICA stenosis. Normal systolic velocities are noted in the proximal left external carotid artery. There is antegrade flow in the left vertebral artery. IMPRESSION: 1. Bilateral 20-39% proximal ICA stenoses. 2. Antegrade flow in both vertebral arteries.
--- NOTE | 2017-05-17 00:33 | CP.PCM.CON ---
History of Present Illness - History of Present Illness History of Present Illness: 56 yr old woman who presents with syncope and headache, with pmh of migraine (once per month), cervical herniated discs multilevel, s/p lumbar fusion and chronic neck and back pain, s/p epidural injections. Miss Pro was initally evaluted due to hypertension in the Er, and then she had a syncopal spell, where she was walking and suddenly fell. There was no subdural, no seizure, no focal neurological deficits. Before and after the fall, she was complaining of severe headache, 10/10, with mild phtophobia, radiating from her neck to her forehead, sharp and throbbing in nature. On admission, she was started on depakote and decadron, and magnesium, and headache improved. Migraines occur once a month, with no aura, and with nausea, vomiting, and dizziness. She says this headache is different in that it is localized to her neck and radiates to her forehead. she usually uses relpax and was on topamax in the past with good relief, There is no history of adverse effects with topamax. SHe follows with a pain management physician who has given her occipital nerve block in April and multiple epidiurals in the high cervical region. However, she has not had relief. In fact, she has been advised by neurosurgery that she needs cervical fusion at multiple levels but refused. There is mild weakness in the extremities and dermatomal decrease in sensation No bowel or bladder incontinence. PMH/PSH: as above and hyperlipidemia FH:SH: no smoking, no tobacco. All: nkda. On exam: AAOX3. Pupils 3mm-2mm with light. EOMI. CN 2-12 normal. Speech fluent. memory normal. strength: 5/5 ul and ll bl. Sensory: decreased ft, pin in C5/C6 dermatome bilaterally. Decreased ROM in lumbar spine. +1 brachioradialis, biceps, +2 all other reflxes.Gait normal, no ataxia. ROM normal, VFF. no drift, Toes downgoing, 1 beat of clonus. Past Patient History - Past Social History Smoking Status: Never Smoked - CARDIAC Hx Cardiac Disorders: Yes (Hypotension) Hx Hypertension: Yes Hx Peripheral Edema: Yes (b/l lower extremity +2,+1 R>L) - PULMONARY Hx Respiratory Disorders: No - NEUROLOGICAL Hx Neurological Disorder: Yes Other/Comment: Fibromyalgia, chronic fatigue - HEENT Hx HEENT Problems: Yes (Glasses) - RENAL Hx Chronic Kidney Disease: No - ENDOCRINE/METABOLIC Hx Endocrine Disorders: No - HEMATOLOGICAL/ONCOLOGICAL Hx Blood Disorders: No - INTEGUMENTARY Hx Dermatological Problems: No - MUSCULOSKELETAL/RHEUMATOLOGICAL Hx Falls: Yes Hx Unsteady Gait: Yes - GASTROINTESTINAL Hx Gastroesophageal Reflux: Yes - GENITOURINARY/GYNECOLOGICAL Hx Genitourinary Disorders: No - PSYCHIATRIC Hx Substance Use: No - SURGICAL HISTORY Hx Hysterectomy: Yes Other/Comment: Rt. Knee, Rt. Shoulder Meds Allergies/Adverse Reactions: Allergies Allergy/AdvReac Type Severity Reaction Status Date / Time No Known Allergies Allergy Verified 05/15/17 20:53 - Medications Medications: Current Medications Aspirin (Aspirin Chewable) 81 mg PO DAILY [facility] Last Admin: 05/16/17 12:06 Dose: 81 mg Atorvastatin Calcium (Lipitor) 40 mg PO DIN [facility] Heparin Sodium (Porcine) (Heparin) 5,000 units SC Q12 [facility] PRN Reason: Protocol Last Admin: 05/16/17 12:05 Dose: 5,000 units Sodium Chloride (Sodium Chloride 0.9%) 1,000 mls @ 100 mls/hr IV .Q10H [facility] Last Admin: 05/16/17 12:38 Dose: 100 mls/hr Loratadine (Claritin) 10 mg PO DAILY [facility] Last Admin: 05/16/17 12:06 Dose: 10 mg Magnesium Oxide (Mag-Ox) 400 mg PO BID [facility] Last Admin: 05/16/17 12:06 Dose: 400 mg Pantoprazole Sodium (Protonix Inj) 40 mg IVP Q12 [facility] Last Admin: 05/16/17 12:05 Dose: 40 mg Sodium Chloride ([place] Nasal [place]) 2 ml NS BID PRN PRN Reason: Nasal congestion Results - Vital Signs Recent Vital Signs: Last Vital Signs Temp 97.4 F L 05/16/17 12:00 Pulse 86 05/16/17 12:00 Resp 20 05/16/17 12:00 BP 156/95 H 05/16/17 12:00 Pulse Ox 98 05/16/17 06:00 - Labs Result Diagrams: 05/16/17 06:30 05/16/17 06:30 Labs: Laboratory Results - last 24 hr 05/15/17 05/15/1718 18:15 21:51 06:30 WBC 6.5 RBC 4.14 Hgb 13.4 Hct 40.9 MCV 98.8 MCH 32.4 MCHC 32.8 RDW 14.1 Plt Count 288 MPV 9.0 Gran % 40.9 L Lymph % (Auto) 46.6 H [place] % (Auto) 8.5 H Eos % (Auto) 3.1 Baso % (Auto) 0.9 Gran # 2.64 Lymph # 3.0 Chaves # 0.6 Eos # 0.2 Baso # 0.06 Sodium Potassium Chloride Carbon Dioxide Anion Gap BUN Creatinine Est GFR ( Amer) Est GFR (Non-Af Amer) Random Glucose Hemoglobin A1c Calcium Phosphorus Magnesium Total Bilirubin AST ALT Alkaline Phosphatase Lactate Dehydrogenase 589 Total Creatine Kinase 211 Troponin I < 0.01 NT-Pro-B Natriuret Pep Total Protein Albumin Globulin Albumin/Globulin Ratio Triglycerides Cholesterol LDL Cholesterol Direct HDL Cholesterol TSH 3rd Generation Urine Color Yellow Urine Appearance Cloudy Urine pH 7.0 Ur Specific [place] 1.015 Urine Protein Negative Urine Glucose (UA) Negative Urine Ketones Negative Urine Blood Trace-intact H Urine Nitrate Negative Urine Bilirubin Negative Urine Urobilinogen 0.2 Ur Leukocyte Esterase Negative Urine RBC 1 - 3 Urine WBC 0 - 2 Ur Epithelial Cells 6 - 8 Urine Bacteria Mod 05/16/17 05/16/17 05/16/17 06:30 06:30 06:30 WBC RBC Hgb Hct MCV MCH MCHC RDW Plt Count MPV Gran % Lymph % (Auto) [place] % (Auto) Eos % (Auto) Baso % (Auto) Gran # Lymph # [place] # Eos # Baso # Sodium 141 Potassium 3.5 L Chloride 101 Carbon Dioxide 28 Anion Gap 16 BUN 14 Creatinine 0.9 Est GFR ( Amer) > 60 Est GFR (Non-Af Amer) > 60 Random Glucose 125 H Hemoglobin A1c 6.2 Calcium 9.3 Phosphorus 4.2 Magnesium 2.0 Total Bilirubin 0.2 AST 49 H ALT 64 H Alkaline Phosphatase 106 Lactate Dehydrogenase 456 Total Creatine Kinase 172 Troponin I < 0.01 NT-Pro-B Natriuret Pep Total Protein 7.0 Albumin 4.1 Globulin 2.8 Albumin/Globulin Ratio 1.4 Triglycerides 185 H Cholesterol 194 LDL Cholesterol Direct 119 HDL Cholesterol 55 TSH 3rd Generation 3.44 Urine Color Urine Appearance Urine pH Ur Specific [place] Urine Protein Urine Glucose (UA) Urine Ketones Urine Blood Urine Nitrate Urine Bilirubin Urine Urobilinogen Ur Leukocyte Esterase Urine RBC Urine WBC Ur Epithelial Cells Urine Bacteria 05/16/17 09:45 WBC RBC Hgb Hct MCV MCH MCHC RDW Plt Count MPV Gran % Lymph % (Auto) [place] % (Auto) Eos % (Auto) Baso % (Auto) Gran # Lymph # [place] # Eos # Baso # Sodium Potassium Chloride Carbon Dioxide Anion Gap BUN Creatinine Est GFR ( Amer) Est GFR (Non-Af Amer) Random Glucose Hemoglobin A1c Calcium Phosphorus Magnesium Total Bilirubin AST ALT Alkaline Phosphatase Lactate Dehydrogenase Total Creatine Kinase Troponin I NT-Pro-B Natriuret Pep 29.1 Total Protein Albumin Globulin Albumin/Globulin Ratio Triglycerides Cholesterol LDL Cholesterol Direct HDL Cholesterol TSH 3rd Generation Urine Color Urine Appearance Urine pH Ur Specific [place] Urine Protein Urine Glucose (UA) Urine Ketones Urine Blood Urine Nitrate Urine Bilirubin Urine Urobilinogen Ur Leukocyte Esterase Urine RBC Urine WBC Ur Epithelial Cells Urine Bacteria Assessment & Plan - Assessment and Plan (Free Text) Assessment: 56 yr old woman with migraine and severe cervical spasm, as well as occipital neuralgia, and tension headache. She will need weekly occipital nerve blocks and TPI injections from pain management. Plan: 1. Topamax 50 mg bid 2. Imitrex 100 mg po now 3. Refer back to pain managemnt. 4. Blood pressure control. 5. flexaril 5 mg po daily
[2017-05-17 07:17] LABS: BASO # 0.01 K/mm3 (0.0-2.0); BASO % 0.1 % (0.0-3.0); GRAN # 9.48 (1.4-6.5); GRAN % 78.7 % (50.0-68.0); HEMOGLOBIN 13.1 g/dL (12.0-16.0); LYMPH # 1.9 (1.2-3.4); LYMPH % 15.6 % (22.0-35.0); MEAN CELL VOLUME 97.3 fl (80.0-105.0); MEAN CORPUSCULAR HEMOGLOBIN 32.4 pg (25.0-35.0); MEAN CORPUSCULAR HGB CONC 33.3 g/dl (31.0-37.0); MONO # 0.7 (0.1-0.6); MONO % 5.6 % (1.0-6.0); RBC 4.04 10^6/uL (3.5-6.1); WHITE BLOOD COUNT 12.1 10^3/ul (4.5-11.0)
[2017-05-17 07:20] LABS: ALB/GLOB RATIO 1.3 (1.1-1.8); ALT/SGPT 55 U/L (7-56); AST/SGOT 39 U/L (14-36); BLOOD UREA NITROGEN 13 mg/dL (7-21); CALCIUM 9.4 mg/dL (8.4-10.5); GFR AFRICAN-AMERICAN > 60; GFR NON-AFRICAN AMERICAN > 60
--- NOTE | 2017-05-17 07:40 | CP.PCM.PN ---
Subjective - Date & Time of Evaluation Date of Evaluation: 05/17/17 Time of Evaluation: 07:37 - Subjective Subjective: Ms. Pro was seen and examined at the bedside. She is alert, oriented. She states of her headache improved since admission. She denies any blurred vision, slurred speech, numbness, weakness, lightheadedness, nausea, or vomiting. She further claims of being able to sleep last night in comparison from previous night. There was no untoward events overnight. Objective - Vital Signs/Intake and Output Vital Signs (last 24 hours): Temp Pulse Resp BP Pulse Ox 98.8 F 105 H 20 159/101 H 98 05/16/17 19:06 05/16/17 19:06 05/16/17 19:06 05/16/17 19:06 05/16/17 06:00 Intake and Output: 05/17/17 05/17/17 06:59 18:59 Intake Total 720 Balance 720 - Medications Medications: Current Medications Aspirin (Aspirin Chewable) 81 mg PO DAILY [facility] Last Admin: 05/16/17 12:06 Dose: 81 mg Atorvastatin Calcium (Lipitor) 40 mg PO DIN [facility] Cyclobenzaprine HCl (Flexeril) 5 mg PO TID [facility] Last Admin: 05/16/17 15:06 Dose: 5 mg Heparin Sodium (Porcine) (Heparin) 5,000 units SC Q12 [facility] PRN Reason: Protocol Last Admin: 05/16/17 22:32 Dose: 5,000 units Sodium Chloride (Sodium Chloride 0.9%) 1,000 mls @ 100 mls/hr IV .Q10H [facility] Last Admin: 05/16/17 12:38 Dose: 100 mls/hr Loratadine (Claritin) 10 mg PO DAILY [facility] Last Admin: 05/16/17 12:06 Dose: 10 mg Losartan Potassium (Cozaar) 100 mg PO DAILY [facility] Last Admin: 05/16/17 19:02 Dose: 100 mg Magnesium Oxide (Mag-Ox) 400 mg PO BID [facility] Pantoprazole Sodium (Protonix Ec Tab) 40 mg PO Q12 [facility] Last Admin: 05/16/17 22:32 Dose: 40 mg Sodium Chloride ([place] Nasal [place]) 2 ml NS BID PRN PRN Reason: Nasal congestion Topiramate (Topamax) 50 mg PO BID [facility] PRN Reason: Protocol Last Admin: 05/16/17 15:06 Dose: 50 mg - Labs Labs: 05/17/17 06:30 05/17/17 06:30 PT 11.4 SECONDS (9.4-12.5) 05/15/17 13:23 INR 0.99 (0.93-1.08) 05/15/17 13:23 APTT 30.8 Seconds (25.1-36.5) 05/15/17 13:23 - Constitutional Appears: No Acute Distress - Head Exam Head Exam: NORMAL INSPECTION - ENT Exam Additional comments: pupils 3mm-2mm with light. - Neurological Exam Neurological Exam: Alert, Awake, Oriented x3 Neuro motor strength exam: Left Upper Extremity: 5, Right Upper Extremity: 5, Left Lower Extremity: 5, Right Lower Extremity: 5 Additional comments: CN 2-12 normal. Speech fluent. memory normal. Assessment and Plan (1) Headache Assessment & Plan: Case discussed with Dr. Ricci, continue all current medical therapy. Recommend blood pressure control and for patient to return to her pain management physician as an outpatient.If there is a change of mental status to do CT of the head without contrast. Status: Acute
[2017-05-17] MEDS: Pantoprazole 40 mg EC Tab PO SCH ×2 (09:11→22:20)
[2017-05-17] MEDS: Magnesium Oxide 400 mg Tab UD PO SCH ×2 (09:12→18:17)
--- NOTE | 2017-05-17 17:51 | CP.PCM.CON ---
Past Patient History - Past Social History Smoking Status: Never Smoked - CARDIAC Hx Cardiac Disorders: Yes (Hypotension) Hx Hypertension: Yes Hx Peripheral Edema: Yes (b/l lower extremity +2,+1 R>L) - PULMONARY Hx Respiratory Disorders: No - NEUROLOGICAL Hx Neurological Disorder: Yes Other/Comment: Fibromyalgia, chronic fatigue - HEENT Hx HEENT Problems: Yes (Glasses) - RENAL Hx Chronic Kidney Disease: No - ENDOCRINE/METABOLIC Hx Endocrine Disorders: No - HEMATOLOGICAL/ONCOLOGICAL Hx Blood Disorders: No - INTEGUMENTARY Hx Dermatological Problems: No - MUSCULOSKELETAL/RHEUMATOLOGICAL Hx Falls: Yes Hx Unsteady Gait: Yes - GASTROINTESTINAL Hx Gastroesophageal Reflux: Yes - GENITOURINARY/GYNECOLOGICAL Hx Genitourinary Disorders: No - PSYCHIATRIC Hx Substance Use: No - SURGICAL HISTORY Hx Hysterectomy: Yes Other/Comment: Rt. Knee, Rt. Shoulder Meds Allergies/Adverse Reactions: Allergies Allergy/AdvReac Type Severity Reaction Status Date / Time No Known Allergies Allergy Verified 05/15/17 20:53 - Medications Medications: Current Medications Acetaminophen (Tylenol 325mg Tab) 650 mg PO Q6H PRN PRN Reason: Headache Last Admin: 05/17/17 13:11 Dose: 650 mg Aspirin (Aspirin Chewable) 81 mg PO DAILY [facility] Last Admin: 05/17/17 09:11 Dose: 81 mg Atorvastatin Calcium (Lipitor) 40 mg PO DIN [facility] Carvedilol (Coreg) 6.25 mg PO BID [facility] Cyclobenzaprine HCl (Flexeril) 5 mg PO TID [facility] Last Admin: 05/17/17 14:38 Dose: 5 mg Dexamethasone (Decadron) 1 mg PO ONCE@1999 [facility] Stop: 05/17/17 20:01 Heparin Sodium (Porcine) (Heparin) 5,000 units SC Q12 [facility] PRN Reason: Protocol Last Admin: 05/17/17 09:12 Dose: 5,000 units Loratadine (Claritin) 10 mg PO DAILY [facility] Last Admin: 05/17/17 09:12 Dose: 10 mg Lorazepam (Ativan) 0.5 mg PO TID PRN; Protocol PRN Reason: Anxiety Losartan Potassium (Cozaar) 100 mg PO DAILY [facility] Last Admin: 05/17/17 09:12 Dose: 100 mg Magnesium Oxide (Mag-Ox) 400 mg PO BID [facility] Last Admin: 05/17/17 09:12 Dose: 400 mg Pantoprazole Sodium (Protonix Ec Tab) 40 mg PO Q12 [facility] Last Admin: 05/17/17 09:11 Dose: 40 mg Sodium Chloride ([place] Nasal [place]) 2 ml NS BID PRN PRN Reason: Nasal congestion Topiramate (Topamax) 50 mg PO BID [facility] PRN Reason: Protocol Last Admin: 05/17/17 13:10 Dose: 50 mg Results - Vital Signs Recent Vital Signs: Last Vital Signs Temp 98.8 F 05/16/17 19:06 Pulse 105 H 05/16/17 19:06 Resp 20 05/16/17 19:06 BP 159/101 H 05/16/17 19:06 Pulse Ox 98 05/16/17 06:00 - Labs Result Diagrams: 05/17/17 06:30 05/17/17 06:30 Labs: Laboratory Results - last 24 hr 05/17/17 05/17/17 06:30 06:30 WBC 12.1 H D RBC 4.04 Hgb 13.1 Hct 39.3 MCV 97.3 MCH 32.4 MCHC 33.3 RDW 14.0 Plt Count 312 MPV 9.0 Gran % 78.7 H Lymph % (Auto) 15.6 L [place] % (Auto) 5.6 Eos % (Auto) 0.0 L Baso % (Auto) 0.1 Gran # 9.48 H Lymph # 1.9 [place] # 0.7 H Eos # 0.0 Baso # 0.01 Sodium 140 Potassium 3.9 Chloride 107 Carbon Dioxide 22 Anion Gap 15 BUN 13 Creatinine 0.6 L Est GFR ( Amer) > 60 Est GFR (Non-Af Amer) > 60 Random Glucose 140 H Calcium 9.4 Total Bilirubin 0.3 AST 39 H D ALT 55 Alkaline Phosphatase 101 Total Protein 7.0 Albumin 4.0 Globulin 3.0 Albumin/Globulin Ratio 1.3
--- NOTE | 2017-05-17 20:58 | CARD ---
APPROVED REPORT EKG Measurement Heart [id number] <Conclusion> Normal sinus rhythm Moderate voltage criteria for LVH, may be normal variant Borderline ECG
--- NOTE | 2017-05-17 22:07 | PN ---
DATE: COVERING FOR: Carmine Crum MD SUBJECTIVE: The patient was ambulated today with physical therapy. She did experience dizziness toward the end. She denies any chest pain. OBJECTIVE: VITAL SIGNS: Blood pressure 159/101, heart rate 105, temperature 98.8, and respirations 20. There was no significant postural changes in the blood pressure. HEENT: Normocephalic. CHEST: Clear. HEART: S1 and S2, regular. EXTREMITIES: No edema. LABORATORY DATA: Hemoglobin and hematocrit are 13.1 and 39.3. White count and platelet counts are 12.1 and 312,000. Today's SMA-7 is within normal limits except for glucose of 140 and creatinine of 0.6. Echocardiogram revealed a borderline concentric LVH with normal ejection fraction and normal segmental wall motion, grade 1 abnormal relaxation pattern. EKG revealed sinus rhythm with voltage criteria for LVH. Chest CT scan, a small focal density in right upper lobe, measuring 4 to 8 mm, most likely representing scar. No evidence of lung mass or pneumonia. Neck MRI, increased tortuosity of the left internal carotid artery without hemodynamically significant stenosis or occlusion. Evaluation of the right internal carotid artery and bilateral common carotid arteries are technically suboptimal. Head MRI, persistent origin of the left posterior cerebral artery, there is mild decrease of the caliber of this vessel proximally, which either developmental or due to mild stenosis. The A2 segment of the bilateral anterior cerebral arteries appear to be duplicated, which is likely due to motion artifact, although linear band of hypodensity is visualized on the in the region of these vessels, is considered less likely. This can be further evaluated with CT angio. Brain MRI, there is no restricted diffusion within the brain to suggest acute ischemic changes. Carotid Doppler. bilateral 20% to 39% proximal internal carotid artery stenosis. Antegrade flow in both vertebral arteries. ASSESSMENT: 1. Dizziness. 2. Hypertension. 3. Obesity. 4. Chronic fatigue syndrome. CONDITIONS: Continue aspirin 81 mg once a day, Coreg 6.25 mg twice a day, Cozaar 100 mg once a day, subcutaneous heparin 5000 units twice a day, Lipitor 40 mg once a day, and further findings of the brain MRI will be discussed with a neurologist. Ruben Peraza MD [facility] # [id number]
--- NOTE | 2017-05-18 00:26 | CON ---
DATE: NEPHROLOGY CONSULTATION HISTORY OF PRESENT ILLNESS: This 56-year-old female with past medical history of chronic migraine headaches, fibromyalgia, reported chronic fatigue syndrome, chronic neck pain and presented to ED yesterday with complaints of generalized weakness, headaches, shortness of breath; patient also reporting new onset of increased blood pressure; Nephrology being consulted for possible secondary hypertension. The patient reports having normal blood pressure previously; had been placed on verapamil 120 mg but only as migraine prophylaxis, not as an antihypertensive agent; however, over the past few days, has been noticing that she has had elevated blood pressure readings as high as 180/110; the patient also reports having had chest pain and palpitations lately; the patient denies any feeling of impending doom; the patient does report 25-pound weight gain over the past 1-1/2 years; denies any change in her skin tone; the patient also reports relatively new onset of shortness of breath with decreased exercise tolerance when walking uphill; however, can walk 1 mile on a flat surface without issues. 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 PAST MEDICAL HISTORY: As above, stage IV endometriosis, status post hysterectomy; L4-L5 fusion; status post cholecystectomy. FAMILY HISTORY: Mother breast cancer, father [place]. SOCIAL HISTORY: Denies smoking. Social alcohol use. MEDICATIONS: At home, Relpax 40 mg as needed, loratadine 5 mg daily, valacyclovir 2 mg daily, memantine 5 mg daily, naltrexone 1 mg daily, modafinil 100 mg daily, Glutathione 50 mg weekly, cyclobenzaprine 5 mg nightly, celecoxib 200 mg twice a day, multiple vitamin supplements. REVIEW OF SYSTEMS: CONSTITUTIONAL: Weight loss as mentioned above. HEENT: Denies any visual deficits; however, did have blurry vision yesterday that has resolved. Denies any change in her voice RESPIRATORY: Reports having had some cough lately. CARDIOVASCULAR: Reports palpitations. EXTREMITIES: Reports some leg swelling, currently improved. GI: Denies any nausea, vomiting. : Reports some dysuria. MUSCULOSKELETAL: Multiple joint pains, reports stiffness of finger joints in the morning, improves as day goes along. PSYCHIATRIC: History of chronic fatigue syndrome. SKIN: Denies any change in skin tone. No itching or rashes. NEURO: Frequent headaches. PHYSICAL EXAMINATION: VITAL SIGNS: This morning, blood pressure 123/68, heart rate 68, respirations 18, temperature 98, O2 sat 98% on room air. GENERAL: No distress. Conversing coherently in full sentences. HEENT: Moist mucous membranes. Nonicteric. No cervical lymphadenopathy. NECK: No JVD distention. RESPIRATORY: Lungs clear to auscultation bilaterally. No rales. No rhonchi. No wheezes. CARDIOVASCULAR: Heart sounds S1, S2 normal. No murmurs, no gallops, no rubs. Regular rate and rhythm. GI: Abdomen is soft, nontender, nondistended. : No bladder distention. EXTREMITIES: No lower leg edema. No swelling in fingers noted. MUSCULOSKELETAL: Normal movement about restraints. NEURO: 5/5 motor in bilateral upper extremities, 4+/5 in lower extremities. PSYCHIATRIC: Normal mood, normal affect. NEURO: No tremor noted. LABORATORY DATA: The labs this morning CBC: WBC 12.1, hemoglobin 13.1, hematocrit 39.3, platelets 312. Chemistry panel: Sodium 140, potassium 3.9, chloride 107, bicarb 22, BUN 13, creatinine 0.6, glucose 140, calcium 9.4, AST 39, ALT 55, hemoglobin A1c 6.2, albumin 4.0. ABDOMINAL ULTRASOUND: Reporting increased echogenicity of the liver parenchyma. UA negative protein, trace blood. ASSESSMENT AND PLAN: 1. New-onset hypertension concerning for secondary hypertension. Differential diagnosis is subclinical Juan Jose's versus renin-secreting tumor; no history consistent with pheochromocytoma, but will screen for it anyway. We will perform overnight 1 mg dexamethasone suppression test. We will check plasma aldosterone and renin activity. We will obtain plasma-free metanephrines. We will decrease losartan to 50 mg to avoid sudden drop in blood pressure. 2. Hypokalemia, relatively mild with potassium level of 3.5 yesterday. Continue to monitor periodically. Thank you for this consult. We will be following up closely. Sharif Petersen MD
--- NOTE | 2017-05-18 02:57 | CON ---
DATE: HISTORY OF PRESENT ILLNESS: The patient is 56-year-old female with not known previous psychiatric history. Self-report history of adjustment disorder and mood disorder. The patient was admitted on the medical side for evaluation of his chest pain and hypertension. Psych consult was called for evaluation of anxiety. The patient was seen and examined today. The patient presented to be alert and oriented, pleasant, cooperative. The patient reported that she is not suffering from anxiety and her anxiety is related to the medical issues and particular to hypertensive episode which the patient started to have few months ago. The patient also complained that she feels that her heart beats fast, blood pressure was 159/101. The patient reported that she does not have any panic attacks or generalized anxiety disorder. The patient feels if her blood pressure will be under control, she would be feeling much better. The patient denied hearing voices, denied seeing things and denied any paranoid ideation. The patient also denied using any drugs. The patient denied feeling depressed and denied thoughts of harming herself or others. The patient denied smoking or using alcohol. PHYSICAL EXAMINATION VITAL SIGNS: Reviewed. Temperature 98.8, pulse 105, blood pressure of 159/101 and respiration 20. MEDICATIONS: Reviewed. Tylenol, aspirin, Lipitor, Coreg, Flexeril, heparin, Claritin, magnesium oxide, pantoprazole Topamax 50 mg twice a day. LABORATORY DATA: Reviewed. WBC 12.1 and a chemistry also reviewed. Urinalysis showed blood. MENTAL STATUS EXAM: The patient presented to be alert, oriented, pleasant, cooperative, intermittent eye contact. Speech was normal rate, tone, quality and quantity. Mood described, "I do not have any anxiety, I am worried about my blood pressure." Affect was constricted. Mood congruent. Thought process seems to be coherent and goal directed. Thought content, the patient denied visual, auditory or tactile hallucinations. Denied paranoid ideation. The patient denied thoughts of harming herself or others. Denied intent or plan. Insight and judgment fair. Impulses are well controlled. IMPRESSION: Rule out anxiety due to general medical condition, rule out adjustment disorder with anxious mood. PLAN: This proposal manager writer offered the patient a small dose of Ativan as needed for anxiety as symptomatic treatment, the patient verbalized understanding. This proposal manager writer educated the patient about risks, benefits and alternatives of the medications. This proposal manager writer doubt that the patient has anxiety disorder, but anxiety could be related to the medical issues. The patient adamantly denied thoughts of harming herself or others. The patient pose no imminent danger to self or others. I will ask Dr. Sapp to follow up on this patient tomorrow to find out if the patient tolerates medications well. Meanwhile, if the patient will be discharged there is no contraindication for that. Thank you very much for letting me participate in care of your patient. Should you have any questions give me a call back. Amalia Shook MD
--- NOTE | 2017-05-18 05:17 | CP.PCM.PN ---
Addendum entered and electronically signed by Yang Hughes DO 05/18/17 10 :46: typing error made: originally states in plan atorvastatin and lipitor were started due to brain MRI findings however this should read aspirin and Lipitor started due to brain MRI findings, not atorvastatin and lipitor. Original Note: <Yang Hughes - Last Filed: 05/18/17 05:19> Subjective - Date & Time of Evaluation Date of Evaluation: 05/17/17 Time of Evaluation: 09:00 - Subjective Subjective: Patient seen and examined at bedside in no acute distress. States she feels fine as the headache medication is working however her new concern is feeling dizzy when she gets up to walk. Endorses shortness of breath, dizziness. Denies nausea, vomiting, diarrhea, abdominal pain. Objective - Vital Signs/Intake and Output Vital Signs (last 24 hours): Temp Pulse Resp BP Pulse Ox 98 F 68 18 123/68 98 05/17/17 18:06 05/17/17 18:20 05/17/17 18:06 05/17/17 18:20 05/17/17 18:06 Intake and Output: 05/17/17 05/18/17 18:59 06:59 Intake Total 960 Balance 960 - Medications Medications: Current Medications Acetaminophen (Tylenol 325mg Tab) 650 mg PO Q6H PRN PRN Reason: Headache Last Admin: 05/17/17 13:11 Dose: 650 mg Aspirin (Aspirin Chewable) 81 mg PO DAILY [facility] Last Admin: 05/17/17 09:11 Dose: 81 mg Atorvastatin Calcium (Lipitor) 40 mg PO DIN [facility] Last Admin: 05/17/17 18:24 Dose: 40 mg Carvedilol (Coreg) 6.25 mg PO BID [facility] Last Admin: 05/17/17 18:20 Dose: 6.25 mg Cyclobenzaprine HCl (Flexeril) 5 mg PO TID [facility] Last Admin: 05/17/17 18:24 Dose: 5 mg Heparin Sodium (Porcine) (Heparin) 5,000 units SC Q12 [facility] PRN Reason: Protocol Last Admin: 05/17/17 09:12 Dose: 5,000 units Loratadine (Claritin) 10 mg PO DAILY [facility] Last Admin: 05/17/17 09:12 Dose: 10 mg Lorazepam (Ativan) 0.5 mg PO TID PRN; Protocol PRN Reason: Anxiety Losartan Potassium (Cozaar) 50 mg PO DAILY [facility] Magnesium Oxide (Mag-Ox) 400 mg PO BID [facility] Last Admin: 05/17/17 18:17 Dose: 400 mg Pantoprazole Sodium (Protonix Ec Tab) 40 mg PO Q12 [facility] Last Admin: 05/17/17 09:11 Dose: 40 mg Sodium Chloride (Manuel Garcia Nasal [place]) 2 ml NS BID PRN PRN Reason: Nasal congestion Topiramate (Topamax) 50 mg PO BID [facility] PRN Reason: Protocol Last Admin: 05/17/17 18:17 Dose: 50 mg - Labs Labs: 05/17/17 06:30 05/17/17 06:30 PT 11.4 SECONDS (9.4-12.5) 05/15/17 13:23 INR 0.99 (0.93-1.08) 05/15/17 13:23 APTT 30.8 Seconds (25.1-36.5) 05/15/17 13:23 - Constitutional Appears: Non-toxic, No Acute Distress - Head Exam Head Exam: ATRAUMATIC, NORMAL INSPECTION, NORMOCEPHALIC - Eye Exam Eye Exam: EOMI - ENT Exam ENT Exam: Mucous Membranes Moist - Neck Exam Neck Exam: Normal Inspection - Respiratory Exam Respiratory Exam: Clear to Ausculation Bilateral, NORMAL BREATHING PATTERN. absent: Rhonchi, Wheezes - Cardiovascular Exam Cardiovascular Exam: Tachycardia, REGULAR RHYTHM, +S1, +S2 - GI/Abdominal Exam GI & Abdominal Exam: Soft, Normal Bowel Sounds - Back Exam Back Exam: NORMAL INSPECTION - Neurological Exam Neurological Exam: Alert, Awake, Oriented x3 - Psychiatric Exam Psychiatric exam: Anxious, Normal Affect - Skin Skin Exam: Intact, Normal Color, Warm Assessment and Plan - Assessment and Plan (Free Text) Assessment: Patient is a 56 year old female with past medical history of chronic migraines, hypotension presenting to [facility] emergency department with complaints of generalized weakness, headaches, shortness of breath, headaches, and epigastric pain. Plan: Syncope r/o ACS versus migraine versus vasovagal versus orthostasis - Troponin negative x 3 - EKG; normal sinus rhythm - carotid doppler; bilateral 20-39% proximal ICA stenosis - echocardiogram; borderline concentric left ventricular hypertophy, aside from this finding there are no other abnormalities - CT chest: no evidence of pneumonia or mass - orthostatics; positive. Started on intravenous fluids. - CBC, CMP, TSH, fasting lipid panel, HgA1C: liver enzymes are downtrending, TSH normal, lipid panel significant for trigylcerides 185, HgA1C - Cardiology consult; recommendations appreciated - Neurology consult; MRA head reveals possible mild stenosis of left posterior cerebral artery and MRA neck reveals mild stenosis of left internal carotid artery which correlates with carotid doppler findings. Atorvastatin and Lipitor started as well considering findings of chronic small ischemic vessel changes on MRI brain. - continue with neuro checks Migraines - Patient given dexamethasone, valproic acid, and magnesium oxide. Discussed case with headache specialist Dr. Hawkins. Dr. Hawkins would like patient to be placed on imitrex, flexaril, and topomax. Will see how patient tolerates this medication regimen. - Regular diet Hypertension - Continue to monitor according to headache treatment. If hypertension persists will consider anti-hypertensives - Nephrologt consulted; recommendations appreciated; dexamethasone suppression test to rule out [place]'s. Physcial Therapy Evaluation - Complains of issues ambulating; awaiting physical therapy assessment. Deep vein thrombosis/Gastrointestinal prophylaxis SCDs and heparin drip/Protonix Case discussed and reviewed with Dr. Katya Hughes PGY1 <Qamar Aldana - Last Filed: 05/18/17 15:16> Objective - Vital Signs/Intake and Output Vital Signs (last 24 hours): Temp Pulse Resp BP Pulse Ox 97.6 F 87 20 142/92 H 97 05/18/17 08:43 05/18/17 09:17 05/18/17 08:43 05/18/17 09:17 05/18/17 08:43 Intake and Output: 05/18/17 05/18/17 06:59 18:59 Intake Total 960 Balance 960 - Labs Labs: 05/18/17 07:30 05/18/17 07:30 PT 11.4 SECONDS (9.4-12.5) 05/15/17 13:23 INR 0.99 (0.93-1.08) 05/15/17 13:23 APTT 30.8 Seconds (25.1-36.5) 05/15/17 13:23 Attending/Attestation - Attestation I have personally seen and examined this patient.: Yes I have fully participated in the care of the patient.: Yes I have reviewed all pertinent clinical information, including history, physical exam and plan: Yes Notes (Text): 05/18/17 15:15 Attending note; Patient seen and examined with resident. Patient is a 56 year old female with past medical history of chronic fatigue syndrome , history of epidural injections , occipital nerve block, chronic migraines who presented with complaint of headache, high blood pressure and pre syncopal episode. CT and MRI brain without significant ischemia. Echocardiogram normal. Carotid Doppler normal. Neurology and cardiology evaluation appreciated. Hypertension; not on blood pressure medication at home. Currently on Diovan. Coreg added. continue flexaril and topamax. Mild transaminitis noted; abdominal ultrasound showed fatty liver. PT evaluation appreciated. Patient has some gait instability. Monitor today. Possible discharge home tomorrow if PT clears the patient.
[2017-05-18 08:09] LABS: BASO # 0.03 K/mm3 (0.0-2.0); BASO % 0.4 % (0.0-3.0); EOS % 0.5 % (1.5-5.0); GRAN # 4.99 (1.4-6.5); GRAN % 64.1 % (50.0-68.0); HEMOGLOBIN 12.6 g/dL (12.0-16.0); LYMPH # 2.2 (1.2-3.4); LYMPH % 28.7 % (22.0-35.0); MEAN CORPUSCULAR HEMOGLOBIN 31.9 pg (25.0-35.0); MEAN CORPUSCULAR HGB CONC 32.6 g/dl (31.0-37.0); MEAN PLATELET VOLUME 8.9 fl (7.0-11.0); MONO # 0.5 (0.1-0.6); MONO % 6.3 % (1.0-6.0); RBC 3.95 10^6/uL (3.5-6.1); RED CELL DISTRIBUTION WIDTH 14.3 % (11.5-14.5); WHITE BLOOD COUNT 7.8 10^3/ul (4.5-11.0)
[2017-05-18 08:26] LABS: ALB/GLOB RATIO 1.4 (1.1-1.8); ALBUMIN 3.8 g/dL (3.0-4.8); ALT/SGPT 50 U/L (7-56); AST/SGOT 33 U/L (14-36); BLOOD UREA NITROGEN 14 mg/dL (7-21); CALCIUM 8.7 mg/dL (8.4-10.5); GFR AFRICAN-AMERICAN > 60; GFR NON-AFRICAN AMERICAN > 60
[2017-05-18 08:44] VITALS: RESP 20; TEMP 97.6; O2SAT 97
[2017-05-18] MEDS: Pantoprazole 40 mg EC Tab PO SCH (09:17)
[2017-05-18] MEDS: Magnesium Oxide 400 mg Tab UD PO SCH (09:18)
[2017-05-18 09:23] VITALS: BP 142/92; PULSE 87
[2017-05-18] MEDS ORDERED: Influenza Vaccine 60 mcg/0.5 mL SYR (4YR UP) IM ONE (11:19)
--- NOTE | 2017-05-18 11:24 | CP.PCM.DIS ---
<Madan Montanez - Last Filed: 05/18/17 11:17> Provider - Provider Date of Admission: 05/16/17 16:25 Attending physician: Qamar Aldana MD Consults: Neuro: Radhames Nephro: Nicola Cardio: Radames Psych: Amalia Time Spent in preparation of Discharge (in minutes): 45 Hospital Course - Lab Results Lab Results: Most Recent Lab Values WBC 7.8 10^3/ul (4.5-11.0) D 05/18/17 07:30 RBC 3.95 10^6/uL (3.5-6.1) 05/18/17 07:30 Hgb 12.6 g/dL (12.0-16.0) 05/18/17 07:30 Hct 38.7 % (36.0-48.0) 05/18/17 07:30 MCV 98.0 fl (80.0-105.0) 05/18/17 07:30 MCH 31.9 pg (25.0-35.0) 05/18/17 07:30 MCHC 32.6 g/dl (31.0-37.0) 05/18/17 07:30 RDW 14.3 % (11.5-14.5) 05/18/17 07:30 Plt Count 288 10^3/uL (120.0-450.0) 05/18/17 07:30 MPV 8.9 fl (7.0-11.0) 05/18/17 07:30 Gran % 64.1 % (50.0-68.0) 05/18/17 07:30 Lymph % (Auto) 28.7 % (22.0-35.0) 05/18/17 07:30 [place] % (Auto) 6.3 % (1.0-6.0) H 05/18/17 07:30 Eos % (Auto) 0.5 % (1.5-5.0) L 05/18/17 07:30 Baso % (Auto) 0.4 % (0.0-3.0) 05/18/17 07:30 Gran # 4.99 (1.4-6.5) 05/18/17 07:30 Lymph # 2.2 (1.2-3.4) 05/18/17 07:30 [place] # 0.5 (0.1-0.6) 05/18/17 07:30 Eos # 0.0 (0.0-0.7) 05/18/17 07:30 Baso # 0.03 K/mm3 (0.0-2.0) 05/18/17 07:30 PT 11.4 SECONDS (9.4-12.5) 05/15/17 13:23 INR 0.99 (0.93-1.08) 05/15/17 13: APTT 30.8 Seconds (25.1-36.5) 05/15/17 13:23 Sodium 141 mmol/L (132-148) 05/18/17 07:30 Potassium 3.9 mmol/L (3.6-5.0) 05/18/17 07:30 Chloride 110 mmol/L (98-107) H 05/18/17 07:30 Carbon Dioxide 22 mmol/L (21-33) 05/18/17 07:30 Anion Gap 13 (10-20) 05/18/17 07:30 BUN 14 mg/dL (7-21) 05/18/17 07:30 Creatinine 0.8 mg/dl (0.7-1.2) 05/18/17 07:30 Est GFR ( Amer) > 60 05/18/17 07:30 Est GFR (Non-Af Amer) > 60 05/18/17 07:30 POC Glucose (mg/dL) 102 mg/dL (65-110) 05/15/17 13:21 Random Glucose 106 mg/dL (70-110) 05/18/17 07:30 Hemoglobin A1c 6.2 % (4.2-6.5) 05/16/17 06:30 Calcium 8.7 mg/dL (8.4-10.5) 05/18/17 07:30 Phosphorus 4.2 mg/dL (2.5-4.5) 05/16/17 06:30 Magnesium 2.0 mg/dL (1.7-2.2) 05/16/17 06:30 Total Bilirubin 0.2 mg/dL (0.2-1.3) 05/18/17 07:30 AST 33 U/L (14-36) 05/18/17 07:30 ALT 50 U/L (7-56) 01/13/18 07:30 Alkaline Phosphatase 84 U/L (38-126) 05/18/17 07:30 Lactate Dehydrogenase 456 U/L (333-699) 05/16/17 06:30 Total Creatine Kinase 172 U/L (35-230) 05/16/17 06:30 CK-MB (CK-2) 0.8 ng/mL (0.0-3.6) 05/15/17 13:23 CK-MB (CK-2) % Cancelled 05/15/17 13: Troponin I < 0.01 ng/mL 05/16/17 06:30 NT-Pro-B Natriuret Pep 29.1 pg/mL (0-450) 05/16/17 09:45 Total Protein 6.5 g/dL (5.8-8.3) 05/18/17 07:30 Albumin 3.8 g/dL (3.0-4.8) 05/18/17 07:30 Globulin 2.8 gm/dL 05/18/17 07:30 Albumin/Globulin Ratio 1.4 (1.1-1.8) 05/18/17 07:30 Triglycerides 185 mg/dL (35-160) H 05/16/17 06:30 Cholesterol 194 mg/dL (130-200) 05/16/17 06:30 LDL Cholesterol Direct 119 mg/dL (0-129) 05/16/17 06:30 HDL Cholesterol 55 mg/dL (29-60) 05/16/17 06:30 TSH 3rd Generation 3.44 mIU/mL (0.46-4.68) 05/16/17 06:30 Urine Color Yellow (YELLOW) 05/15/17 18:15 Urine Appearance Cloudy (CLEAR) 05/15/17 18:15 Urine pH 7.0 (4.7-8.0) 05/15/17 18:15 Ur Specific [place] 1.015 (1.005-1.035) 05/15/17 18:15 Urine Protein Negative mg/dL (<30 mg/dL) 05/15/17 18:15 Urine Glucose (UA) Negative mg/dL (NEGATIVE) 05/15/17 18:15 Urine Ketones Negative mg/dL (NEGATIVE) 05/15/17 18:15 Urine Blood Trace-intact (NEGATIVE) H 05/15/17 18:15 Urine Nitrate Negative (NEGATIVE) 05/15/17 18:15 Urine Bilirubin Negative (NEGATIVE) 05/15/17 18:15 Urine Urobilinogen 0.2 E.U./dL (<1 E.U./dL) 05/15/17 18:15 Ur Leukocyte Esterase Negative [place]/uL (NEGATIVE) 05/15/17 18:15 Urine RBC 1 - 3 /hpf (0-2) 05/15/17 18:15 Urine WBC 0 - 2 /hpf (0-6) 05/15/17 18:15 Ur Epithelial Cells 6 - 8 /hpf (0-5) 05/15/17 18:15 Urine Bacteria Mod (NEG) 05/15/17 18:15 - Hospital Course Hospital Course: Patient is a 56 year old female with past medical history of chronic migraines, hypotension presenting to [facility] emergency department with complaints of generalized weakness, headaches, shortness of breath, headaches, and epigastric pain. While in the emergency department patient experienced a syncopal episode for which code star was called. Preliminary tests were ordered including EKG, Chest x-ray, carotid dopplers, echocardiogram and labs. EKG revealed normal sinus rhythm, Chest x-ray revealed no acute disease, carotid doppler revealed 20-39% bilateral stenosis of the proximal internal carotid arteries, echocardiogram revealed no abnormalities aside from mild concetric left ventricular hypertrophy, and labs were normal aside from elevated liver enzymes which was later found to be due to fatty liver and hypokalemia which was immediately repleted. Due to patient's presentation, cardiology, neurology, and nephrology was consulted. From a cardiology point of view patient needed to be started on antihypertensives as well as an exercise program. Neurology diagnosed patient's headaches as tension headaches which would require occipital nerve blocks and eventualy a distectomy for further control. Further work up by neurology included MRA of the head and neck which revealed possible mild stenosis of left posterior cerebral artery and mild stenosis of left internal carotid artery which correlates with carotid doppler findings. Due to patient's sudden hypertension with no exact cause, it was decided to consult nephrology to work up secondary causes of hypertension. Patient will continue to follow up with nephrology on an outpatient basis for further evaluation of causes of hypertension. Patient was provided with prescriptions to help with the tension headaches as well as antihypertensives. Considering the brain MRI finding of chronic ischemic changes in vessels, aspirin was also added to patient's medication regimen as per neurology. Patient was in agreement with plan of discharge, patient was then discharged. Discharge Diagnosis 1. Occipital Neuralgia 2. Tension Headache 3. Migraines 4. Syncope, likely vasovagal; ACS/CVA and VBI ruled out 5. Migraines 6. Hypertension Discharge Medications - ASA 81 mg PO Daily - Lipitor 40 mg PO DIN - Carvedilol 6.25 mg PO BID - Ativan 0.5 mg PO TID - Losartan 50 mg PO daily - Mag-Ox 400 mg PO BID - Protonix 40 mg PO daily - Topiramate 50 mg PO BID Discharge Exam - Head Exam Head Exam: ATRAUMATIC, NORMAL INSPECTION, NORMOCEPHALIC - Eye Exam Eye Exam: Normal appearance - ENT Exam ENT Exam: Normal Exam - Neck Exam Neck exam: Normal Inspection - Respiratory Exam Respiratory Exam: Clear to PA & Lateral. absent: Rales, Rhonchi, Wheezes - Cardiovascular Exam Cardiovascular Exam: RRR, +S1, +S2. absent: Diastolic murmur, Gallop, Rubs, Systolic Murmur - GI/Abdominal Exam GI & Abdominal Exam: Soft. absent: Distended, Guarding, Rebound, Tenderness - Rectal Exam Rectal Exam: NORMAL INSPECTION - Extremities Exam Extremities exam: normal inspection - Back Exam Back exam: NORMAL INSPECTION - Neurological Exam Neurological exam: Alert, Oriented x3 - Psychiatric Exam Psychiatric exam: Normal Affect, Normal Mood - Skin Skin Exam: Dry, Intact, Normal Color, Warm Discharge Plan - Discharge Medications Prescriptions: Aspirin [Aspirin Chewable] 81 mg PO DAILY #14 chew Atorvastatin [Lipitor] 40 mg PO DIN 14 Days tab Carvedilol [Coreg] 6.25 mg PO BID 14 Days tab LORazepam [Ativan] 0.5 mg PO TID #8 tab Losartan [Cozaar] 50 mg PO DAILY 14 Days #14 tab Magnesium Oxide [Mag-Ox] 400 mg PO BID #28 tab Pantoprazole [Protonix EC Tab] 40 mg PO DAILY 14 Days ect Topiramate [Topamax] 50 mg PO BID #28 tab - Follow Up Plan Condition: FAIR Disposition: HOME/ ROUTINE Instructions: Chest Pain (DC), Hypertension (DC), Near Syncope (ED) Additional Instructions: 1. Please follow up with your PMD within 3-5 days. 2. Please take medications provided to you as prescribed. 3. Follow up with your supervisor of research Dr. Petersen regarding results of secondary hypertension work-up. 4. Follow up with your neurologist for occipital nerve block. 5. Do not hesitate to return to the emergency department is symptoms worsen or return. Referrals: Sharif Petersen MD [Staff Provider] - <Qamar Aldana - Last Filed: 05/18/17 15:18> Provider - Provider Date of Admission: 05/16/17 16:25 Attending physician: Qamar Aldana MD Hospital Course - Lab Results Lab Results: Most Recent Lab Values WBC 7.8 10^3/ul (4.5-11.0) D 05/18/17 07:30 RBC 3.95 10^6/uL (3.5-6.1) 05/18/17 07:30 Hgb 12.6 g/dL (12.0-16.0) 05/18/17 07:30 Hct 38.7 % (36.0-48.0) 05/18/17 07:30 MCV 98.0 fl (80.0-105.0) 05/18/17 07:30 MCH 31.9 pg (25.0-35.0) 05/18/17 07:30 MCHC 32.6 g/dl (31.0-37.0) 05/18/17 07:30 RDW 14.3 % (11.5-14.5) 05/18/17 07:30 Plt Count 288 10^3/uL (120.0-450.0) 05/18/17 07:30 MPV 8.9 fl (7.0-11.0) 05/18/17 07:30 Gran % 64.1 % (50.0-68.0) 05/18/17 07:30 Lymph % (Auto) 28.7 % (22.0-35.0) 05/18/17 07:30 [place] % (Auto) 6.3 % (1.0-6.0) H 05/18/17 07:30 Eos % (Auto) 0.5 % (1.5-5.0) L 05/18/17 07:30 Baso % (Auto) 0.4 % (0.0-3.0) 05/18/17 07:30 Gran # 4.99 (1.4-6.5) 05/18/17 07:30 Lymph # 2.2 (1.2-3.4) 05/18/17 07:30 [place] # 0.5 (0.1-0.6) 05/18/17 07:30 Eos # 0.0 (0.0-0.7) 05/18/17 07:30 Baso # 0.03 K/mm3 (0.0-2.0) 05/18/17 07:30 PT 11.4 SECONDS (9.4-12.5) 05/15/17 13:23 INR 0.99 (0.93-1.08) 05/15/17: APTT 30.8 Seconds (25.1-36.5) 05/15/17: Sodium 141 mmol/L (132-148) 05/18/17 07:30 Potassium 3.9 mmol/L (3.6-5.0) 05/18/17 07:30 Chloride 110 mmol/L (98-107) H 05/18/17 07:30 Carbon Dioxide 22 mmol/L (21-33) 05/18/17 07:30 Anion Gap 13 (10-20) 05/18/17 07:30 BUN 14 mg/dL (7-21) 05/18/17 07:30 Creatinine 0.8 mg/dl (0.7-1.2) 05/18/17 07:30 Est GFR ( Amer) > 60 05/18/17 07:30 Est GFR (Non-Af Amer) > 60 05/18/17 07:30 POC Glucose (mg/dL) 102 mg/dL (65-110) 05/15/17 13:21 Random Glucose 106 mg/dL (70-110) 05/18/17 07:30 Hemoglobin A1c 6.2 % (4.2-6.5) 05/16/17 06:30 Calcium 8.7 mg/dL (8.4-10.5) 05/18/17 07:30 Phosphorus 4.2 mg/dL (2.5-4.5) 05/16/17 06:30 Magnesium 2.0 mg/dL (1.7-2.2) 05/16/17 06:30 Total Bilirubin 0.2 mg/dL (0.2-1.3) 05/18/17 07:30 AST 33 U/L (14-36) 05/18/17 07:30 ALT 50 U/L (7-56) 05/18/17 07:30 Alkaline Phosphatase 84 U/L (38-126) 05/18/17 07:30 Lactate Dehydrogenase 456 U/L (333-699) 05/16/17 06:30 Total Creatine Kinase 172 U/L (35-230) 05/16/17 06:30 CK-MB (CK-2) 0.8 ng/mL (0.0-3.6) 05/15/17 13:23 CK-MB (CK-2) % Cancelled 05/15/17 Troponin I < 0.01 ng/mL 05/16/17 06:30 NT-Pro-B Natriuret Pep 29.1 pg/mL (0-450) 05/16/17 09:45 Total Protein 6.5 g/dL (5.8-8.3) 05/18/17 07:30 Albumin 3.8 g/dL (3.0-4.8) 05/18/17 07:30 Globulin 2.8 gm/dL 05/18/17 07:30 Albumin/Globulin Ratio 1.4 (1.1-1.8) 05/18/17 07:30 Triglycerides 185 mg/dL (35-160) H 05/16/17 06:30 Cholesterol 194 mg/dL (130-200) 05/16/17 06:30 LDL Cholesterol Direct 119 mg/dL (0-129) 05/16/17 06:30 HDL Cholesterol 55 mg/dL (29-60) 05/16/17 06:30 TSH 3rd Generation 3.44 mIU/mL (0.46-4.68) 05/16/17 06:30 Urine Color Yellow (YELLOW) 05/15/17 18:15 Urine Appearance Cloudy (CLEAR) 05/15/17 18: Urine pH 7.0 (4.7-8.0) 05/15/17 18:15 Ur Specific [place] 1.015 (1.005-1.035) 05/15/17 18:15 Urine Protein Negative mg/dL (<30 mg/dL) 05/15/17 18:15 Urine Glucose (UA) Negative mg/dL (NEGATIVE) 05/15/17 18:15 Urine Ketones Negative mg/dL (NEGATIVE) 05/15/17 18:15 Urine Blood Trace-intact (NEGATIVE) H 05/15/17 18:15 Urine Nitrate Negative (NEGATIVE) 05/15/17 18:15 Urine Bilirubin Negative (NEGATIVE) 05/15/17 18:15 Urine Urobilinogen 0.2 E.U./dL (<1 E.U./dL) 05/15/17 18:15 Ur Leukocyte Esterase Negative [place]/uL (NEGATIVE) 05/15/17 18:15 Urine RBC 1 - 3 /hpf (0-2) 05/15/17 18:15 Urine WBC 0 - 2 /hpf (0-6) 05/15/17 18:15 Ur Epithelial Cells 6 - 8 /hpf (0-5) 05/15/17 18:15 Urine Bacteria Mod (NEG) 05/15/17 18:15 Attending/Attestation - Attestation I have personally seen and examined this patient.: Yes I have fully participated in the care of the patient.: Yes I have reviewed all pertinent clinical information, including history, physical exam and plan: Yes Notes (Text): 05/18/17 15:16 Attending note; Patient seen and examined with resident. Patient is a 56 year old female with past medical history of chronic fatigue syndrome , history of epidural injections , occipital nerve block, chronic migraines who presented with complaint of headache, high blood pressure and pre syncopal episode. CT and MRI brain without significant ischemia. Echocardiogram normal. Carotid Doppler normal. Neurology and cardiology evaluation appreciated. Hypertension; adequately controlled with Coreg and Diovan. continue flexaril and topamax. Anxiety; psychiatric evaluation appreciated. Started on Ativan. Hypertension; patient was also evaluated by Dr. Petersen. Follow-up as outpatient. abdominal ultrasound showed fatty liver. Continue Lipitor. PT evaluation appreciated. Follow-up with Dr. Rita koroma as outpatient. Follow-up with PMD of choice. 05/18/17 15:17
--- NOTE | 2017-05-18 22:39 | CP.PCM.PN ---
Subjective - Date & Time of Evaluation Date of Evaluation: 05/18/17 Time of Evaluation: 12:00 - Subjective Subjective: Patient again reporting lightheadedness on ambulation today; Objective - Vital Signs/Intake and Output Vital Signs (last 24 hours): Temp Pulse Resp BP Pulse Ox 97.6 F 87 20 142/92 H 97 05/18/17 08:43 05/18/17 09:17 05/18/17 08:43 05/18/17 09:17 05/18/17 08:43 - Labs Labs: 05/18/17 07:30 05/18/17 07:30 PT 11.4 SECONDS (9.4-12.5) 05/15/17 13:23 INR 0.99 (0.93-1.08) 05/15/17 13:23 APTT 30.8 Seconds (25.1-36.5) 05/15/17 13:23 - Constitutional Appears: Well, No Acute Distress - Eye Exam Eye Exam: Normal appearance. absent: Scleral icterus - ENT Exam ENT Exam: Mucous Membranes Moist - Respiratory Exam Respiratory Exam: Clear to Ausculation Bilateral. absent: Respiratory Distress - Cardiovascular Exam Cardiovascular Exam: RRR, +S1, +S2 - GI/Abdominal Exam GI & Abdominal Exam: Soft. absent: Distended, Tenderness - Extremities Exam Additional comments: no leg edema; - Neurological Exam Neurological Exam: Alert, Awake - Psychiatric Exam Psychiatric exam: Normal Affect, Normal Mood - Skin Skin Exam: Warm. absent: Cyanosis Assessment and Plan (1) Hypertension Assessment & Plan: New onset htn, not seen on clinic vitals as recently as Mar 2017; lab workup sent to [facility] for possible secondary causes including sub-clinical Cushings and pheo; will f/u as outpatient; for now, patient to continue losartan 50 mg daily as she responded very well to the med; patient advised that if she remains lightheaded, should decrease dose in half; Status: Acute (2) Near syncope Assessment & Plan: Etiology unclear but doesn't seem related to htn unless patient was having significant pressure natiuresis with subsequent volume depletion (orthostatic changes were recorded 2 days ago, but repeat measurement done today was negative ); see above regarding losartan dose; Status: Acute
--- NOTE | 2017-05-20 08:19 | PN ---
DATE: 05/18/2017 ADDENDUM This patient is stable. Anxiety is related to the medical issues what patient had. If no acute issues, this account underwriter will follow up on this patient on Saturday. Other than that, treatment plan was discussed with Dr. Aldana in detail. The patient is not suicidal, not homicidal, not in any imminent danger to self or others. If patient needs to be discharged, there is no contraindication for that from the psychiatric standpoint. Should you have any questions, give me a call back. Thank you so much. Amalia Shook MD
== END 2017-05-18 14:42 | disposition home or self-care (01) | DRG 552 ==
LOC: ED 11:31 → ERH 15:01 → 3RSO 21:32 → OBSVTOIN 05-16 16:25 → 3RSO 05-16 17:09 → 3RNO 05-16 18:57
PROVIDERS: ADMIT Internal Medicine; ATTEND Internal Medicine
DX: M54.81 Occipital neuralgia (principal); K76.0 Fatty (change of) liver, not elsewhere classified; I65.23 Occlusion and stenosis of bilateral carotid arteries; G43.909 Migraine, unspecified, not intractable, without status migrainosus; I10 Essential (primary) hypertension; R42 Dizziness and giddiness; E78.5 Hyperlipidemia, unspecified; G89.29 Other chronic pain; M54.2 Cervicalgia; M79.7 Fibromyalgia; E87.6 Hypokalemia; F41.9 Anxiety disorder, unspecified; G44.209 Tension-type headache, unspecified, not intractable; R55 Syncope and collapse; E66.9 Obesity, unspecified; Z90.710 Acquired absence of both cervix and uterus; Z90.49 Acquired absence of other specified parts of digestive tract; Z98.1 Arthrodesis status